=== PATIENT | male | born 1995 | race Caucasian/White ===

== ENCOUNTER 2024-05-08 14:55 | Emergency (ER) | payer OTHER, SELFPAY ==
[2024-05-08 14:56] VITALS: BP 146/112
[2024-05-08 15:01] VITALS: BMI 31.0
--- NOTE | 2024-05-08 15:18 | ED.GENMED ---
History of Present Illness
General
Chief Complaint: Blood Pressure Problem
Source: patient and police
Exam Limitations: none
Time Seen by Provider: 05/08/24 15:09
Nursing documentation reviewed up to this point in time: agreed with
History of Present Illness
History of Present Illness:
29-year-old male past medical history of ADHD anxiety and bipolar presenting to the emergency department today with concerns of elevated blood pressure on intake at [facility] when he was transferred from [facility]
correctional facility. They claimed that his blood pressure was elevated and sent him to the ER. He denies any current symptoms. He claims that he was stopped on his Subutex 5 days ago pending his transfer from a company to [facility]. They
were unable to verify it. He claims that this is likely why his blood pressure is elevated he denies any major concerns otherwise.
Review of Systems
Review of Systems
Allergies reviewed?: Yes
All Other Systems: ROS reviewed and negative except as documented in HPI and ROS
Phy Exam
Physical Exam
Physical Exam:
GENERAL: Alert , in no apparent distress
EYE: pupils equal and reactive
NECK: Supple, no significant adenopathy.
ENT: o/p clr, mmm.
CARDIAC: Regular rate and rhythm .
LUNGS: Clear breath sounds bilaterally, no acute respiratory distress, no wheezes/rales/rhonchi
ABDOMEN: Soft, without focal tenderness, no r/g, no cvat
NEUROLOGICAL: Alert and oriented, no focal neuro deficits
SKIN: Warm and dry, skin intact.
MUSCULOSKELETAL: No edema, well perfused.
PSYCH: Normal and appropriate interaction.
Course
Orders/Labs/Results
Orders:
Orders
05/08/24 15:14
EKG [Electrocardiogram (*1)] Urgent
Reason for Study: QTc Monitoring
EKG- Treatment ONCE
Buprenorphine [Subutex] 8 mg SL ONCE ONE
Vital Signs
Initial and Last Documented VS:
Initial Vital Signs
Temp Pulse Resp BP Pulse Ox
98.0 F 126 20 146/112 98
05/08/24 14:56 05/08/24 14:56 05/08/24 14:56 05/08/24 14:56 05/08/24 14:56
Last Documented Vital Signs
Temp Pulse Resp BP Pulse Ox
98.0 F 100 18 155/107 98
05/08/24 14:56 05/08/24 17:00 05/08/24 17:00 05/08/24 17:00 05/08/24 17:00
MDM/Problems Addressed
MDM/Problems Addressed:
29-year-old male presenting to the emergency department coming from [facility] he was refused entry due to elevated blood pressure at time of transfer from [facility]. He claims during the transfer
he was discontinued on his Subutex which he does plan to take in the future and has been taking in the past. He claims that he takes 16 mg daily and his last dose was 5 days ago. He claims this is likely why his blood pressure is elevated but he
denies any chest pain shortness of breath trouble with urination abdominal pain numbness weakness headache. There is no evidence of hypertensive emergency here. EKG normal given Subutex with improvement of heart rate blood pressure with slight
otherwise stable for outpatient management of this. Return precautions given.
*Critical Care Note
Total Time (30-74mins, 75-104mins- exclusive of procedures): Not Applicable
ED Attending Note
-
Portions of this chart may have been created with voice recognition software.� Occasional wrong word or��sound alike� substitutions may have occurred due to the inherent limitations of voice recognition software.
Discharge Plan
Departure
Patient Disposition: Fdc
Date of Disposition: 05/08/24
Time of Disposition: 17:31
Patient with high blood pressure during this ER visit?: Yes
Condition: Good
Covid-19: Not Applicable
Discharge Problem:
High blood pressure
Instructions: High Blood Pressure (DC)
Prescriptions:
New
buprenorphine HCl 8 mg tablet, sublingual
16 mg sublingual DAILY 3 Days Qty: 6 0RF
Referrals:
NONE,* [Family Provider] -
Activity Restrictions/Additional Instructions:
The patient is medically cleared for incarceration. Kartik presented here with concerns of elevated blood pressure on arrival to [facility] earlier today. Here the blood pressure has been in the 140s over 100. He has been
asymptomatic and has no evidence of hypertensive emergency at this time. His EKG was normal. Heart rate was initially elevated but now in the high 90s. He did discontinue Subutex over the past few days which is a very likely cause of patient's
elevated blood pressure. He was given an additional dose here. He should resume this medication and have his blood pressure monitored over the next few days as this will likely return to normal. If there is any issues or concerns please call
[phone]
Interventions
Interventions:
*Risk Screen - Suicide Last Done: 05/08/24 15:05
*General Assessment Last Done: 05/08/24 15:05
*Neglect/Abuse Screening Last Done: 05/08/24 15:06
*ED COVID-19 Vaccine History Last Done: 05/08/24 15:04
Discharge Date and Time
Print Language: URDU
[2024-05-08] MEDS: SUBUTEX 8 MG SL (16:01)
[2024-05-08 17:00] VITALS: BP 155/107
== END 2024-05-08 17:41 ==
LOC: EMR 14:55
PROVIDERS: EMERGENCY PHYSICIAN Emergency Medicine
DX: R03.0 Elevated blood-pressure reading, without diagnosis of hypertension (principal); F31.9 Bipolar disorder, unspecified
CPT/HCPCS: 99283; 93005

== ENCOUNTER 2024-09-10 14:56 | Inpatient (IN) | payer OTHER, SELFPAY ==
[2024-09-10] VITALS (44 sets, daily range): BP systolic 116–165; BP diastolic 64–131; BMI 27.3
[2024-09-10 10:47] LABS: Glucose - Point of Care 131 mg/dl (70-99)
--- NOTE | 2024-09-10 11:03 | ED.GENMED ---
History of Present Illness
General
Chief Complaint: Withdrawal Symptoms
Source: patient and ambulance crew
Exam Limitations: none
Time Seen by Provider: 09/10/24 10:40
Nursing documentation reviewed up to this point in time: agreed with
History of Present Illness
History of Present Illness:
Patient with history of fentanyl use, with last use 3 days ago, presents to ED from [facility] secondary to continual nausea and vomiting since being admitted to facility 2 days ago. Patient denies abdominal pain. Denies
fever or chills. Denies chest pain or shortness of breath. Denies headache. Patient reports diarrhea along with shaking and sweating sensation.
Review of Systems
Review of Systems
Allergies reviewed?: Yes
All Other Systems: ROS reviewed and negative except as documented in HPI and ROS
Constitutional: Reports no symptoms; Denies fever
Respiratory: Reports no symptoms
Cardiac: Reports no symptoms
ABD/GI: Reports nausea, vomiting and diarrhea; Denies abdominal pain
: Reports no symptoms
Musculoskeletal: Reports no symptoms
Skin: Reports no symptoms
Neurological: Reports no symptoms
Phy Exam
Physical Exam
Physical Exam:
Physical Exam
General: mild distress, acutely ill. afebrile. tachycardic
Head: nc/at. eomi
Neck: supple. no meningeal signs.
Heart: tachycardic, no murmur.
Lungs: no acute respiratory distress. clear bilaterally
Abdomen: normal bowel sounds. not tender.
Neuro: alert and oriented x 3. no focal neurological deficits
Skin: no rash
Psychiatric: well kept. interactive and cooperative
Extremities: no edema. no calf tenderness.
Course
Orders/Labs/Results
Orders:
Orders
09/10/24 Breakfast
NPO
Allow oral meds: Yes
Allow clear liquids: Sips of Clears
NPO with Ice Chips: Yes
09/10/24 10:52
Electrocardiogram (*1) Stat
Comment: ALREADY DONE IN ED
09/10/24 10:55
0.9% Sodium Chloride 1000 ml [Nss] 1,000 ml IV BOLUS
Lorazepam [Ativan] 2 mg IM NOW STA
Ondansetron Injectable [Zofran] 4 mg IV NOW STA
09/10/24 11:06
Alcohol Urgent
Complete Blood Count/With Diff Urgent
Comprehensive Metabolic Panel Urgent
Magnesium Urgent
09/10/24 11:08
Trimethobenzamide [Tigan] 200 mg .ROUTE .STK-MED ONE
Trimethobenzamide [Tigan] 200 mg IM NOW STA
09/10/24 11:14
Lorazepam [Ativan] 2 mg IV NOW STA
09/10/24 12:05
Electrocardiogram (*1) Stat
Comment: ALREADY DONE IN ED
09/10/24 12:12
Lorazepam [Ativan] 2 mg .ROUTE .STK-MED ONE
09/10/24 12:14
Lorazepam [Ativan] 2 mg IV NOW STA
09/10/24 13:05
Lorazepam [Ativan] 1 mg IV NOW STA
09/10/24 13:06
Prochlorperazine [Compazine] 10 mg IV NOW STA
09/10/24 14:00
Admit/Transfer Patient As Directed
Co-Sign Provider:
Level of Care: Inpatient admission
Assign to:: IMU- Intermediate Care
Physician / Group: Tanya
Diagnosis: Opioid Withdrawal
Reason for Hospitalization: Opioid Withdrawal
Expected length of stay greater than two midnights?: Yes
ELOS- Estimated Length of Stay in days: 3
I certify the patient meets the requirements for IP care: Yes
09/10/24 14:01
Code Status As Directed
Resuscitation Status: Full Code
PRN Pain Medication Management As Directed
May give lesser potent ordered pain med per pt: Yes
preference::
Protocol:: Medication orders for pain may be administered in a
manner that supports deferring to patient preference
when the pt is:
- Requesting an ordered lesser potent pain medication.
Least to most potent pain medications are defined
as: acetaminophen < NSAID < tramadol < opioids
(morphine, oxycodone, hydromorphone).
- Requesting a lesser dose of the same medication IF
ORDERED.
- Requesting a less intrusive route of administration
if both routes are prescribed by the provider (PO <
IV).
09/10/24 14:07
Potassium Chloride [KCl] 20 meq 0.9% Sodium Chloride 250 ml [Nss] 250 ml IV NOW
09/10/24 14:11
Add On- LAB Urgent
Tests Added?: magnesium
09/10/24 14:19
PRN Pain Medication Management As Directed
May give lesser potent ordered pain med per pt: Yes
preference::
Protocol:: Medication orders for pain may be administered in a
manner that supports deferring to patient preference
when the pt is:
- Requesting an ordered lesser potent pain medication.
Least to most potent pain medications are defined
as: acetaminophen < NSAID < tramadol < opioids
(morphine, oxycodone, hydromorphone).
- Requesting a lesser dose of the same medication IF
ORDERED.
- Requesting a less intrusive route of administration
if both routes are prescribed by the provider (PO <
IV).
09/10/24 14:21
Acetaminophen 1000MG/100Ml [Ofirmev] 1,000 mg in 100 ml IV ONCE
Acetaminophen IV Indication:: No NE & No Enteral Access
09/10/24 14:30
Buprenorphine [Subutex] 2 mg .ROUTE .STK-MED ONE
09/10/24 14:45
Buprenorphine [Subutex] 16 mg SL NOW ONE
09/10/24 15:20
Lorazepam [Ativan] 1 mg IV Q4HPRN PRN
Tizanidine [Zanaflex] 2 mg TUBE Q6HPRN PRN
Trimethobenzamide [Tigan] 200 mg IM Q6HPRN PRN
09/10/24 15:20
Electrocardiogram (*1) Routine
Reason for Study: QTc Monitoring
Comment: if not already done in ED
Activity As Directed
Activity Level: Out of Bed-Early Mobility
With Assistance
Capnography/ETCO2 As Directed
Clinical Opioid Withdrawal Scale (COWS) .PRN
I&O [Intake/ Output] As Directed
Frequency: q12h
Vital Signs As Directed
Frequency: Per unit guidelines
Weight As Directed
Frequency: Daily
DX Deep Vein Thrombosis Video Routine
09/10/24 15:30
Blood Culture Q30M
ARJUN Source: Blood/Venous
Specimen Description:
09/10/24 16:28
Acetaminophen [Tylenol Oral Solution] 650 mg TUBE Q4HPRN PRN
09/10/24 16:38
Fentanyl, Urine Urgent
Urine Drug Abuse Screen Urgent
Date Specimen was Collected: 09/10/24
Time Specimen was Collected: 16:05
Blood Culture Q30M
ARJUN Source: Blood/Venous
Specimen Description:
09/10/24 16:41
KCl 20 Meq/0.9%Sodchl 1000 ml [NSS with KCL 20 MEQ] 20 meq in 1,000 ml IV 125 mls/hr
09/10/24 16:42
Loperamide [Imodium Liquid] 2 mg TUBE Q4HPRN PRN
09/10/24 18:00
Clonidine [Catapres] 0.1 mg TUBE Q6
Enoxaparin Sodium [Lovenox] 40 mg SC QPM
09/11/24 06:00
ECG [Electrocardiogram (*1)] IN AM
Reason for Study: QTc Monitoring
Basic Metabolic Panel IN AM
Complete Blood Count/No Diff IN AM
Cpxnn-Btsi-Eyllgbe IN AM
09/13/24 11:00
DC Protocol for Telemetry ONCE
Abnormal Lab Results
09/10/24 09/10/24
10:46 11:06
WBC 21.7 H 10^3/uL
(4.8-10.8)
Abs Immat Gran (auto) 0.1 H 10^3/uL
(0-0.05)
Absolute Neuts (auto) 19.9 H 10^3/uL
(1.4-6.5)
Absolute Lymphs (auto) 0.8 L 10^3/uL
(1.2-3.4)
Absolute Monos (auto) 0.9 H 10^3/uL
(0.1-0.6)
Immature Gran % 0.6 H %
(0-0.5)
Neutrophils % 91.6 H %
(42.2-75.2)
Lymphocytes % 3.7 L %
(20.5-51.1)
Sodium 147 H mmol/L
(135-145)
Chloride 109 H mmol/L
(98-107)
Glucose 127 H mg/dl
(70-99)
Total Protein 9.1 H g/dl
(6.3-8.2)
POC Glucose 131 H mg/dl
(70-99)
09/10/24 11:06
09/10/24 11:06
Vital Signs
Initial and Last Documented VS:
Initial Vital Signs
Temp Pulse Resp BP Pulse Ox
98.6 F 98 18 136/89 98
09/10/24 10:35 09/10/24 10:35 09/10/24 10:35 09/10/24 10:35 09/10/24 10:35
Last Documented Vital Signs
Temp Pulse Resp BP Pulse Ox
101.3 F H 137 40 122/95 100
09/10/24 16:18 09/10/24 15:15 09/10/24 15:00 09/10/24 15:25 09/10/24 16:18
MDM/Problems Addressed
MDM/Problems Addressed:
History and exam concerning for significant likely opioid withdrawal symptoms. Despite treatment via multiple medications, patient remains symptomatic. As such, patient will be admitted for further evaluation and treatment.
*EKG
Interpreted by ED Provider?: Yes
EKG Intrepretation Date: 09/10/24
Heart Rate: 105
Rate: tachycardiac
Rhythm: sinus
[place]: normal axis
Interval: normal interval
*Critical Care Note
Total Time (30-74mins, 75-104mins- exclusive of procedures): Not Applicable
ED Attending Note
-
Portions of this chart may have been created with voice recognition software.� Occasional wrong word or��sound alike� substitutions may have occurred due to the inherent limitations of voice recognition software.
Discharge Plan
Departure
Patient Disposition: Admit
Date of Disposition: 09/10/24
Time of Disposition: 13:45
Admit to: Telemetry
Presentation/result/management discussed w/ accepting MD/DO: Hospitalist
Discharge Problem:
Opioid withdrawal
Interventions
Interventions:
*Risk Screen - Suicide Last Done: 09/10/24 10:35
*General Assessment Last Done: 09/10/24 12:40
*Neglect/Abuse Screening Last Done: 09/10/24 10:35
*ED COVID-19 Vaccine History Last Done: 09/10/24 10:35
*Nursing Disposition Last Done: 09/10/24 15:20
ED- Neurological Assessment Last Done: 09/10/24 11:36
ED-Psychological Assessment Last Done: 09/10/24 11:36
Discharge Date and Time
Discharge Date/Time: 09/10/24 15:19
[2024-09-10] MEDS: NSS 1000 IV (11:13)
[2024-09-10] MEDS: TIGAN 200 MG IM (11:13)
[2024-09-10] MEDS: ATIVAN 2 MG IV ×2 (11:15→12:15)
[2024-09-10 11:20] LABS: % Basophils 0.2 % (0-2); % Immature Granulocytes 0.6 % (0-0.5); % Lymphocytes 3.7 % (20.5-51.1); % Monocytes 3.9 % (1.7-9.3); % Neutrophils 91.6 % (42.2-75.2); Absolute Basophils 0.1 10^3/uL (0-0.2); Absolute Immature Granulocytes 0.1 10^3/uL (0-0.05); Absolute Lymphocytes 0.8 10^3/uL (1.2-3.4); Absolute Monocytes 0.9 10^3/uL (0.1-0.6); Absolute Neutrophils 19.9 10^3/uL (1.4-6.5); Hematocrit 43.5 % (39.0-52.0); Hemoglobin 15.2 g/dL (13.0-18.0); Mean Corp Hgb Conc. 34.9 g/dL (33.0-37.0); Mean Corpuscular Hgb 28.9 pg (27.0-31.0); Mean Corpuscular Volume 82.7 fL (80.0-94.0); Nucleated Red Blood Cells % 0 % (-); Platelet Count 325 10^3/uL (130-400); Red Blood Cell Count 5.26 10^6/uL (4.70-6.10); Red Cell Dist. Width 12.7 % (11.5-14.5); White Blood Cell Count 21.7 10^3/uL (4.8-10.8)
[2024-09-10 11:33] LABS: AST (SGOT) 37 U/L (17-59); Albumin 4.7 g/dl (3.5-5.0); Alkaline Phosphatase 85 U/L (38-126); Blood Urea Nitrogen 13 mg/dl (9-20); Calcium 10.1 mg/dl (8.4-10.2); Carbon Dioxide 23 mmol/L (22-30); Estimated Creatinine Clearance > 125 ml/min; Glucose 127 mg/dl (70-99); Magnesium 1.8 mg/dl (1.6-2.3); Potassium 3.5 mmol/L (3.5-5.1); Sodium 147 mmol/L (135-145); Total Bilirubin 0.9 mg/dl (0.2-1.3); Total Protein 9.1 g/dl (6.3-8.2); eGFR > 60.00
[2024-09-10 11:36] LABS: Alcohol None Detected
[2024-09-10 11:54] LABS: ALT (SGPT) 36 U/L (0-50); Chloride 109 mmol/L (98-107)
[2024-09-10] MEDS: COMPAZINE 10 MG IV (13:15)
[2024-09-10] MEDS: ATIVAN 1 MG IV (13:15)
--- NOTE | 2024-09-10 13:52 | HPS.HSE ---
Family Physician
-
Family Physician: Facility [facility]
Chief Complaint
-
Opioid Withdrawal
History of Present Illness
Patient is a 29 y/o male past medical history of substance abuse, and anxiety/depression/bipolar disorder who presents with opioid withdrawal. Patient has been incarcerated since yesterday, and reports last fentanyl usage was the day prior.
Patient reported prior benzo use as well. Despite Subutex given at the retirement patient continues with significant opioid withdrawal symptoms including restlessness, nausea/vomiting, and diarrhea.
Medical History
Past Medical History
Past Medical History: Reports Other
Additional Past Medical History:
Anxiety / Depression / Bipolar Disorder
Substance Abuse
Past Surgical History: Reports None
Social History
Drug: Narcotics
Family History
Family History: Not pertinent
Allergies / Home Medications
Allergies reflects when Allergies were last updated in [employer].
Home Medications with original date entered in [employer]
Allergy/Medication List:
Allergies
Allergy/AdvReac Type Severity Reaction Status Date / Time
No Known Allergies Allergy Verified 05/08/24 14:56
Home Medications
buprenorphine HCl 8 mg sublingual tablet 24 mg sublingual DAILY 09/10/24
clonazepam 1 mg tablet 2 mg PO DIRECTED 09/10/24
clonidine HCl 0.1 mg tablet 0.1 mg PO DIRECTED 09/10/24
loperamide 2 mg tablet 2 mg PO TIDPRN PRN diarrhea 09/10/24
ondansetron HCl 4 mg tablet 4 mg PO Q6HPRN PRN nausea 09/10/24
sulfamethoxazole 800 mg-trimethoprim 160 mg tablet (Bactrim DS) 1 tab PO BID 09/10/24
Review of Systems
-
Unable to obtain full review of systems at this time due to: Acuity
Physical Exam
Vital Signs
Vital Signs
Temp Pulse Resp BP Pulse Ox
98.6 F 123 42 138/77 98
09/10/24 10:35 09/10/24 13:15 09/10/24 13:15 09/10/24 13:00 09/10/24 10:35
Physical Exam
General: Well Developed and Other (Restless)
HEENT: NormoCephalic and Anicteric
Respiratory: Clear and Non Labored Respirations
Cardiac: S1/S2, Regular Rhythm and Tachycardia
GI: Soft and Non Tender
Musculoskeletal: No Clubbing, No Cyanosis and No Edema
Skin: Warm and Other (Slightly sweaty)
Neuro: Awake, Alert and No Motor Deficits
Psych: Other (Restless)
Laboratory Results
-
09/10/24 11:06
09/10/24 11:06
Laboratory Results
Total Bilirubin 0.9 mg/dl (0.2-1.3) 09/10/24 11:06
AST 37 U/L (17-59) 09/10/24 11:06
ALT 36 U/L (0-50) 09/10/24 11:06
Alkaline Phosphatase 85 U/L (38-126) 09/10/24 11:06
Data Reviewed
-
Lab Data: Labs Reviewed by me
Impression/Plan
-
Opioid and possible benzo Withdrawal
-Admit to IMU for close monitoring
-Give Subutex 16mg NOW
-Continue Subutex as per opioid withdrawal protocol
-Add Clonidine
-Continue Ativan PRN
-Continue Tigan PRN
Prolonged QT
-Avoid unnecessary QT prolonging medications
-Potassium borderline low, will replace - Check Magnesium
-Recheck ECG in AM
Leukocytosis, likely reactive
-Monitor for signs of infection
-If develop fevers check blood cultures
-Recheck CBC in AM
Hypernatremia, mild
-Appears appears quite volume depleted
-Continue IVFs
-Recheck labs in AM
DVT proph: Lovenox
Code Status: Full Code
[2024-09-10] MEDS: OFIRMEV 100 IV (14:22)
--- NOTE | 2024-09-10 14:29 | W.PN.UPDATE ---
Update Note
Progress Note Update
This is an addendum to the H&P written by Verenice Mendiola on 09/10/2024. Patient seen examined independently with PA.
29-year-old male past medical history of fentanyl use last used 3 days ago presenting from [facility] for nausea and vomiting. Questionable benzodiazepine use. No abdominal pain. No fevers or chills. No chest pain
shortness of breath. Has been having diarrhea sweating.
Tachycardic on labs. EKG shows sinus tachycardia, poor quality. QTc 595.
UDS, urine fentanyl, pending. Alcohol level negative.
Labs show sodium of 147. Leukocytosis 21.
Presentation consistent with acute opiate withdrawal. Also with QTc prolongation.
IV fluids, opiate withdrawal protocol. Give 16 mg buprenorphine now. Standing clonidine as needed Ativan. Tigan for nausea. Consider precedex drip if no improvement.
[2024-09-10] MEDS: SUBUTEX 16 MG SL (14:41)
--- NOTE | 2024-09-10 15:27 | EDRN ---
Pulse ox was >91% in the ed. no resp distress noted in ed. pt became tachypneic and hypoxic in elevator to imu. rapid shallow breathing noted. severe resp distress. rapid response called. pulse ox 64% at bedside of imu. nrb placed. pt transferred to
ICU.
[2024-09-10 15:33] LABS: Glucose - Point of Care 196 mg/dl (70-99)
--- NOTE | 2024-09-10 15:41 | W.SUR.POST ---
Surgical Immediate Post Op
Note
Endotracheal Intubation Procedure
Date of procedure: 09/10/2024
Pre Op Diagnosis: Acute respiratory distress
Post Op Diagnosis: Same as above
Procedure Performed: Endotracheal intubation
Primary proceduralist: Dr. Chaney
Secondary Surgeons: Anesthesia who was called overhead
Anesthesia: Propofol 150 mg IVP X1 + succinylcholine 140 mg IVP X1
Estimated Blood Loss: None
Fluids: N/A
Drains/Shunts: N/A
Specimens/Cultures: N/A
Doppler/Duplex/Angio (Y/N): N/A
Complications: No immediate complications
Operative Findings: Patient was emergently intubated due to acute respiratory distress. RSI given with propofol 150 mg + succinylcholine 140 mg. Patient bagged via BVM and then successfully intubated with video laryngoscope (GlideScope) using an
S3 blade with size 8 ETT being seen inserted into glottis with no resistance. Proper placement also confirmed via color capnometry, as well as auscultation over the chest which had bilateral breath sounds. CXR + ABG pending.
[2024-09-10] MEDS: DIPRIVAN 100 IV ×3 (15:44→22:05)
[2024-09-10] MEDS: SUBLIMAZE 100 MCG IV ×6 (15:46→21:14)
[2024-09-10] MEDS: SUBLIMAZE 100 IV ×2 (15:48→22:06)
--- NOTE | 2024-09-10 15:48 | CON.INTV ---
Documented by User: Moises Ortiz DO, Resident 09/10/24 16:00
Consultation
Consultation Request
Date/Time Consultation Requested: 3:30
Date/Time Consultation Performed: 3:48
Medical History
-
Chief Complaint: Opioid withdrawal
History of Present Illness:
29-year-old male with past medical history of substance use disorder, anxiety, depression, bipolar disorder who presented to [facility] with opioid withdrawal. At time of arrival, patient reported last fentanyl use as 09/09. He has a
history of benzo use as well. Patient is managed on Subutex in penitentiary however continues to have significant opioid withdrawal symptoms. Patient was transferred to the ICU in acute respiratory distress and was intubated. On 50 mg of propofol 140
mg of succinylcholine were utilized. Chest x-ray and ABG were ordered, pending.
Vitals in the ICU are 122/95, 137 pulse, 40 respirations, 101.1 degree temperature, 93% oxygen saturation on room air.
Past medical history�substance use disorder, anxiety, depression, bipolar disorder
Past surgical history�none
Past Medical History
Past Medical History: Other (See above)
Social History
Drug: Narcotics
Living: Intermediate
Family History
Family History: Unable to Obtain
Allergies / Home Medications
Allergies
Allergy/AdvReac Type Severity Reaction Status Date / Time
No Known Allergies Allergy Verified 05/08/24 14:56
Home Medications
�Medication �Instructions �Recorded �Confirmed �Last Taken �Type
buprenorphine HCl 8 mg sublingual 24 mg sublingual DAILY 09/10/24 09/10/24 09/09/24 History
tablet
clonazepam 1 mg tablet 2 mg PO DIRECTED 09/10/24 09/10/24 09/10/24 History
clonidine HCl 0.1 mg tablet 0.1 mg PO DIRECTED 09/10/24 09/10/24 09/10/24 History
loperamide 2 mg tablet 2 mg PO TIDPRN PRN diarrhea 09/10/24 09/10/24 Unknown History
ondansetron HCl 4 mg tablet 4 mg PO Q6HPRN PRN nausea 09/10/24 09/10/24 Unknown History
sulfamethoxazole 800 1 tab PO BID 09/10/24 09/10/24 09/10/24 History
mg-trimethoprim 160 mg tablet
(Bactrim DS)
Review of Systems
-
Unable to Obtain full review of systems at this time due to: Patient Intubation
History Source: Patient
Vitals / Labs / Diagnostic Testing
Vital Signs
Temp Pulse Resp BP Pulse Ox
101.1 F H 137 40 122/95 93
09/10/24 14:23 09/10/24 15:15 09/10/24 15:00 09/10/24 15:25 09/10/24 15:25
Lab Data
09/10/24 11:06
09/10/24 11:06
Diagnostic Testing:
Physical Exam
-
HEENT: Normocephalic and Other (Diaphoretic)
Cardiovascular: S1/S2 and Irregular Rhythm
Respiratory: Clear
GI: Soft and Non Distended
Neurology: Tremors
Skin: Warm and Other (Diaphoretic)
General: Other (Intubated)
Assessment
-
29-year-old male with past medical history of substance use disorder, anxiety, depression and bipolar disorder being managed in the ICU for opioid withdrawal.
Past 24 hours:
� Admitted to ICU
� Intubated on 09/10
� White blood cell count 21.7, hemoglobin 15.2, platelets 325.
� 147 sodium, 3.5 potassium, 23 bicarb, 13 BUN, 0.7 creatinine. Blood glucose 127
� Toxicology report pending, alcohol not detected
� EKG shows sinus tachycardia
# Opioid and possible benzo withdrawal
# Substance use disorder
# Tachycardia
# Leukocytosis
# Elevated blood sugar
# Hyponatremia
# Prolonged QTc on EKG
-Patient intubated at this time: Check ABG at 430
-Continue Subutex as per opiate withdrawal protocol
-Continue clonidine
-Continue as needed Ativan and Tigan
-Toradol IV as needed for pain
-Place barnett
- CXR pending
- wrist restraints ordered
-UTox pending
-Avoid medications that can further prolong QT; repeat EKG in the morning
-Elevated white blood count is likely reactive; no if patient well fevers recommend getting blood culture
-Continue with IV fluids for now; patient likely volume depleted due to vomiting. Recheck labs in the morning
-Borderline low potassium; replete
DVT prophylaxis: Lovenox
GI prophylaxis: Protonix IV 40 mg twice daily

Documented by User: Jorge A Rapp MD, Resident 09/10/24 15:58
Assessment
-
29-year-old male with past medical history of substance use disorder, anxiety, depression and bipolar disorder being managed in the ICU for opioid withdrawal.
Past 24 hours:
� Admitted to ICU
� Intubated on 09/10
� White blood cell count 21.7, hemoglobin 15.2, platelets 325.
� 147 sodium, 3.5 potassium, 23 bicarb, 13 BUN, 0.7 creatinine. Blood glucose 127
� Toxicology report pending, alcohol not detected
� EKG shows sinus tachycardia
# Opioid and possible benzo withdrawal
# Substance use disorder
# Tachycardia
# Leukocytosis
# Elevated blood sugar
# Hyponatremia
# Prolonged QTc on EKG
-Patient intubated at this time: Check ABG at 430
-Continue Subutex as per opiate withdrawal protocol
-Continue clonidine
-Continue as needed Ativan and Tigan
-Toradol IV as needed for pain
-Avoid medications that can further prolong QT; repeat EKG in the morning
-Elevated white blood count is likely reactive; no if patient well fevers recommend getting blood culture
-Continue with IV fluids for now; patient likely volume depleted due to vomiting. Recheck labs in the morning
-Borderline low potassium; replete
DVT prophylaxis: Lovenox
GI prophylaxis: Protonix IV 40 mg twice daily
[2024-09-10] MEDS: MAGNESIUM SULFATE 50 IV (16:09)
[2024-09-10] MEDS: SUBLIMAZE 50 MCG IV (16:24)
[2024-09-10 16:55] LABS: Urine Albumin 2+ (Neg - Trace); Urine Bilirubin Negative (Negative); Urine Character Clear (Clear); Urine Color Yellow; Urine Glucose Negative (Negative); Urine Ketone 3+ (Negative); Urine Leukocyte Negative (Negative); Urine Nitrite Negative (Negative); Urine Occult Blood Negative (Negative); Urine Specific Gravity 1.025 (<1.030); Urine Urobilinogen Negative (Neg - 1+)
[2024-09-10] MEDS: VERSED 4 MG IV (16:56)
[2024-09-10 17:02] LABS: B.E. -1.2 mmol/L; HCO3 22.7 mmol/L (21-28); O2 Saturation % 99.7 % (94-98); PCO2 35 mmHg (35-48); PO2 220 mmHg (83-108); pH 7.42 (7.35-7.45)
[2024-09-10 17:05] LABS: Urine Squamous Cell 0-2 /LPF (Few)
[2024-09-10 17:06] LABS: Urine Mucus Moderate
[2024-09-10 17:07] LABS: Urine Bacteria Few (Negative); Urine Red Blood Cell 0-2 /HPF (0-2); Urine White Cell 0-2 /HPF (0-5)
--- NOTE | 2024-09-10 17:10 | PTCARENOTE ---
VAT at bedside to place PICC.
[2024-09-10 17:11] LABS: Benzodiazepines Positive (Negative); Cocaine Positive (Negative); Methamphetamines Positive (Negative); Opiates Positive (Negative)
[2024-09-10 17:12] LABS: Amphetamines Negative (Negative); Barbiturates Negative (Negative); Buprenorphine Positive (Negative); Marijuana Negative (Negative); Methadone Negative (Negative); Phencyclidine Negative (Negative); Tricyclic Antidepressants Negative (Negative)
[2024-09-10] MEDS: ZYPREXA 10 MG IM (17:16)
[2024-09-10] MEDS: STERILE WATER FOR INJECTION 2.1 ML IM (17:16)
[2024-09-10 17:19] LABS: Fentanyl, Urine Positive (Negative)
[2024-09-10 17:24] LABS: COVID-19 Antigen Negative (Negative)
[2024-09-10 17:25] LABS: Triglycerides 102 mg/dl (10-149)
[2024-09-10 17:49] LABS: APTT 28.2 Sec (23.4-35.0); INR 1.31; PT 16.5 Sec (11.4-14.6)
[2024-09-10] MEDS: KCL 260 MEQ IV (17:49)
--- NOTE | 2024-09-10 18:08 | PTCARENOTE ---
Around 1500, rapid response called for respiratory distress. Patient unresponsive. Tachypneic. Labored breathing. NRB placed for pulse ox in the 60's. Decision made to intubate patient. #8 ett placed, 23cm @ the lip. A/C 22/450/5/60%. Lung sounds
diminished throughout. ST on tele, rate in the 140-160's. Patient restless/agitated. Propofol and Fentanyl drips initiated. Bladder scan 467 cc's. 16Fr indwelling barnett catheter placed. Incontinent of brown, soft BM. Patient vomited a large amount
of coffee ground emesis. 16Fr NGT placed to suction. Patient washed and repositioned. VAT at bedside to place PICC. Patient too agitated and uncooperative to place PICC. Propofol drip max'd @50. Fentanyl bolus administered and drip increased.
Patient continuing to thrash in bed. Kicking legs. Attempting to pull out ett. Relay Mechanic notified. 4mg Versed, 100 mcg Fent bolus administered with little improvement. 10mg IM Zyprexa administered. Left double lumen PICC placed. CXR ordered. ABG,
labs, blood cx's, flu/covid swabs sent. Vitals stable. Core temp 102.5. 1G Ofirmev administered at 1422. Ice packs applied. See worklist and MAR for full assessment and care.
[2024-09-10] MEDS: CATAPRES TUBE ×2 (19:37→23:54)
[2024-09-10] MEDS: NSS with KCL 20 MEQ 1000 IV (19:39)
[2024-09-10] MEDS: NSS (PRESERVATIVE FREE) 10 ML IV (19:39)
[2024-09-10] MEDS: PROTONIX IV 40 MG IV (19:39)
[2024-09-10] MEDS: VERSED 1 MG IV ×2 (20:07→22:21)
[2024-09-10] MEDS: PRECEDEX 100 IV (21:14)
[2024-09-10 21:23] LABS: Glucose - Point of Care 121 mg/dl (70-99)
[2024-09-10] MEDS: STERILE WATER FOR INJECTION 10 ML IV (22:08)
[2024-09-10] MEDS: MAXIPIME 1000 MG IV (22:08)
[2024-09-10] MEDS: VANCOCIN 540 MG IV (22:08)
[2024-09-10] MEDS: TYLENOL ORAL SOLUTION 650 MG TUBE (22:21)
--- NOTE | 2024-09-10 23:06 | PTCARENOTE ---
Received patient intubated and restrained. PERRLA 2 mms, sluggish. Restless, agitated, multiple fentanyl and midazolam boluses given with little relief. THREE DIMENSIONAL MAP MODELER and pharmacy notified, precedex drip initiated. Sinus tach, 110s-140s, hypertensive
150s-160s/80s-100s. THREE DIMENSIONAL MAP MODELER aware. Core temp 102.7, cooling blanket initiated, attempted to give tylenol through NG, patient vomited, THREE DIMENSIONAL MAP MODELER notified. Cleaned up, CHG bath done, gown/sheets changed. Palpable radial and pedal pulses b/l. 8.0 ETT, 26 at the
lip. AC 22/450/5/60%, saturating 100%. Lung sounds diminished, coarse in the bases. Right nare NGT to LIWS with dark brown output. 16 yakut temp sensing barnett in place, minimal urine output, THREE DIMENSIONAL MAP MODELER aware. Scabs scattered throughout. Left DL PICC
patent, WNL. PIVs patent, WNL. Fentanyl, propofol, precedex, and IVF gtt ongoing per protocol. Hourly rounding and patient safety checks ongoing. Repositioned, mouth care done.
[2024-09-11] VITALS (57 sets, daily range): BP systolic 109–211; BP diastolic 67–126; BMI 27.8
--- NOTE | 2024-09-11 00:59 | PTCARENOTE ---
Patient more calm, occasionally still kicking legs. BP 140s/100s, ST 110s-120s, ANIMAL CYTOLOGIST aware. Otherwise patient assessment unchanged from previous, hourly rounding and patient safety checks ongoing.
[2024-09-11] MEDS: DIPRIVAN 100 IV ×5 (01:34→18:39)
[2024-09-11] MEDS: NSS with KCL 20 MEQ 1000 IV (01:34)
--- NOTE | 2024-09-11 02:29 | PTCARENOTE ---
Patient having minimal to no urine output. Bladder scanned for 154 mls, CONTINUITY READER notified. Barnett removed, patient incontinent and saturated the bed. CHG bath done, sheets changed, gown changed, new 16 sinhala temp sensing barnett placed with urine output.
[2024-09-11] MEDS: SUBLIMAZE 100 IV ×4 (03:07→21:03)
[2024-09-11] MEDS: MAXIPIME 1000 MG IV ×4 (04:31→21:24)
[2024-09-11] MEDS: STERILE WATER FOR INJECTION 10 ML IV ×4 (04:31→21:24)
[2024-09-11] MEDS: CATAPRES TUBE (05:04)
[2024-09-11 05:07] LABS: Hematocrit 33.8 % (39.0-52.0); Hemoglobin 11.8 g/dL (13.0-18.0); Mean Corp Hgb Conc. 34.9 g/dL (33.0-37.0); Mean Corpuscular Hgb 29.2 pg (27.0-31.0); Mean Corpuscular Volume 83.7 fL (80.0-94.0); Mean Platelet Volume 10.4 fL (7.4-10.4); Platelet Count 229 10^3/uL (130-400); Red Blood Cell Count 4.04 10^6/uL (4.70-6.10); Red Cell Dist. Width 13.2 % (11.5-14.5); White Blood Cell Count 21.2 10^3/uL (4.8-10.8)
[2024-09-11] MEDS: PRECEDEX 100 IV ×3 (05:24→18:39)
[2024-09-11] MEDS: APRESOLINE 10 MG IV (05:37)
--- NOTE | 2024-09-11 05:43 | PTCARENOTE ---
Patient assessment unchanged from previous, labs sent, repositioned.
[2024-09-11] MEDS: ZOFRAN 4 MG IV ×4 (06:12→23:12)
[2024-09-11] MEDS: CATAPRES 0.1 MG TUBE ×2 (06:13→12:38)
[2024-09-11] MEDS: CARDENE 200 IV ×2 (06:13→14:34)
[2024-09-11 06:18] LABS: ALT (SGPT) 19 U/L (0-50); AST (SGOT) 32 U/L (17-59); Albumin 3.3 g/dl (3.5-5.0); Alkaline Phosphatase 47 U/L (38-126); Blood Urea Nitrogen 11 mg/dl (9-20); Calcium 7.4 mg/dl (8.4-10.2); Carbon Dioxide 19 mmol/L (22-30); Chloride 121 mmol/L (98-107); Direct Bilirubin 0.3 mg/dl (0.0-0.4); Estimated Creatinine Clearance > 125 ml/min; Glucose 91 mg/dl (70-99); Potassium 5.6 mmol/L (3.5-5.1); Sodium 149 mmol/L (135-145); Total Bilirubin 0.6 mg/dl (0.2-1.3); Total Protein 6.4 g/dl (6.3-8.2); eGFR > 60.00
[2024-09-11] MEDS: NSS 1000 IV (06:52)
[2024-09-11] MEDS: CALCIUM GLUCONATE 1000 MG IV (06:59)
[2024-09-11] MEDS: LOKELMA 5 GRAM TUBE (06:59)
--- NOTE | 2024-09-11 08:13 | W.PN.INTV ---
Today's Communication / Plan
Recommendations
Klonopin 0.2 patch
Zoan [id number]
Start D5W for fluid
Assessment
-
29-year-old male with past medical history of substance use disorder, anxiety, depression and bipolar disorder being managed in the ICU for opioid withdrawal.
Past 24 hours:
� Admitted to ICU
� Intubated on 09/10. Continues to have dark brown vomitting.
� White blood cell count 21.2, hemoglobin 11.8, platelets 229.
� 149 sodium, 5.6 potassium, 19 bicarb, 11 BUN, 0.5 creatinine. AG of 15. Blood glucose 121
� Toxicology positive for cocaine, benzodiazepines, methamphetamines, fentanyl, buprenorphine and opioids. Alcohol not detected
� EKG shows sinus tachycardia
- Current drips: Fentanyl 20 mL/h, 0.6 Precedex, IV fluids 125 mL/h, 5 Cardene, 0.9 propofol
- start patient on D5W 75 ml/hr
# Opioid and possible benzo withdrawal
# Substance use disorder
# Tachycardia
# Leukocytosis
# Elevated blood sugar
# Emesis- dark brown
# Hyponatremia/ Hypernatremia
# Hyperkalemia
# Prolonged QTc on EKG
-Patient intubated at this time, continue vent settings
-Continue Subutex as per opiate withdrawal protocol
-Continue as needed Ativan and Tigan/ Reglan
- Continue abx (cefepime + vanc)
-Toradol IV as needed for pain
- Place barnett
- CXR pending
- continue restraints for agitation
-UTox positive for cocaine, benzodiazepines, methamphetamines, fentanyl, buprenorphine and opioids. Alcohol not detected
-Avoid medications that can further prolong QT
-Elevated white blood count is likely reactive; no if patient well fevers recommend getting blood culture
-Continue with IV fluids for now; patient likely volume depleted due to vomiting. Recheck labs at noon
-Replete electrolytes as needed.
- GI consult pending
� Start patient on clonidine 0.2 patch and Zofran [id number].
� Sputum culture pending
DVT prophylaxis: scds
GI prophylaxis: Protonix IV 40 mg twice daily
Subjective Dataa
Subjective Data
Date of Service:
Date of Service: September 11, 2024
patient currently intubated and sedated. Continues to have vomiting despite anti nausea medications.
Chief Complaint: Health Club Manager Follow Up
Review of Systems
General: Unobtainable - Sedation
Objective Data
Data Reviewed
Vital Signs / I&O / Oxygen:
Vital Signs
Temp Pulse Resp BP Pulse Ox
100.4 F H 126 22 145/86 99
09/11/24 07:46 09/11/24 07:15 09/11/24 07:15 09/11/24 07:15 09/11/24 07:15
Intake and Output
09/10/24 09/11/24 09/12/24
06:59 06:59 06:59
Intake Total 3209.7 / 3416.7 207.0 / 207.0
Output Total 795 / 812
Balance 2414.7 / 2604.7 190.0 / 190.0
SaO2 [A/C] 100
SaO2 99
Physical Exam
General: Comfortable and Other (intubated)
HEENT: Normocephalic and Anicteric
Cardiovascular: S1-S2 and Regular Rhythm
Respiratory: Clear
GI: Soft and Non Distended
Skin: Warm and Other (clammy)
Labs/Micro/Reports
Lab Data
09/11/24 04:37
09/11/24 04:37
Laboratory Results
09/10/24 09/10/24
16:48 17:31
PT 16.5 H
INR 1.31
APTT 28.2
pH 7.42
pCO2 35
pO2 220 H
HCO3 22.7
O2 Delivery Level
Microbiology
09/10/24 16:40 Nasal Swab Influenza Types A & B (ROGER) - Final
Negative for Influenza A & B, NAAT
Negative results must be combined with clinical observations
and patient history.
Nucleic Acid Amplification test (NAAT)performed on the
[employer] platform.
[2024-09-11] MEDS: PROTONIX IV 40 MG IV ×2 (08:32→19:40)
[2024-09-11] MEDS: TIGAN 200 MG IM (08:32)
[2024-09-11] MEDS: NSS (PRESERVATIVE FREE) 10 ML IV ×2 (08:32→19:40)
--- NOTE | 2024-09-11 08:40 | W.PN.HOSP.TC ---
Addendum entered and electronically signed by Sarmad Mcdaniels MD 09/11/24 16:27:
Acute hypoxemic respiratory failure now requiring intubation
Continue sedation with fentanyl propofol and Precedex
-Propofol monitor for blood pressure as this can cause hypotension and on Cardene drip therefore goal MAP greater than 65
-Precedex can cause drug-induced fever and bradycardia will need to continue to monitor vitals closely
RASS -5
Daily SAT SBT RSBI goal <105 when ready for extubation
Tidal volume 6 to 8 kg per ideal body weight
Goal spo2 >90%, titrate PEEP/FiO2 as such
Daily CXR
GI prophylaxis
Sepsis high white count tachycardic
Unclear source
Blood cultures were obtained
Polysubstance use however no track millan noted
For completeness we will check 2D echo
Opioid withdrawal
UDS positive for polysubstance use
Continue fentanyl
Continue clonidine
Once extubated and off Precedex fentanyl follow COWS protocol/microdosing
Uncontrolled hypertension
Continue Cardene drip
Coffee-ground emesis/normocytic anemia
3 g drop from admission. All 3 cell lineages decreased therefore suspecting hemoconcentration per GI
For now continue to monitor hemoglobin
Monitor gastric output via NG
PPI twice daily IV
Hyperkalemia unclear if this was a lab error however there is no evidence of hemolysis that will repeat was 3.7 and previous was 3.5
S/p Lokelma at 6:45 in the AM on 09/11/2024
Hypokalemia
Replete
Left upper extremity swelling
DVT study obtained/pending
Hypernatremia/hyperchloremia
Likely secondary to dehydration that was exacerbated by IV fluid administration with crystalloids
Change fluid administration to D5 water at a low rate or half NS
Metabolic acidosis likely related to hyperchloremia
Now resolved
Original Note:
Today's Communication/Plan
-
Continue antibiotics
Wean sedation and nicardipine drip as able
Fluids
COWS protocol
GI appreciated
PPI twice daily
Assessment / Plan
Assessment / Plan
21-year-old male with past medical history of substance use disorder, anxiety, depression, bipolar disorder presented to ED with opioid withdrawal symptoms. He is despite fentanyl and benzos. He has been given Klonopin, Zofran antibiotics and
presented. He was initially admitted to IMU for management, however transferred to ICU for acute respiratory distress requiring intubation on 09/10/2024.
#Acute respiratory distress
-Intubated on 09/10
-Sedation with fentanyl, propofol and Precedex which will also aid with withdrawal symptoms
-SBT per life insurance actuary
-Daily chest x-rays and ABG
# Opioid withdrawal
-UDS revealed opioids, buprenorphine, fentanyl, methamphetamines, benzodiazepines, cocaine
-No track millan noted on PE
-Currently sedated with fentanyl and propofol which will aid with withdrawal symptoms
-Received 16 mg Subutex, continue per COWS protocol
-Scheduled Zofran for intense nausea and vomiting
-Clonidine patch
-On nicardipine drip for associated hypertension
-Fluids D5
-tc 2D echo with hx substance use disorder to eval for endocarditits
-As needed fentanyl, midazolam, tizanidine
#Ground coffee emesis
# Acute blood loss anemia
-Ground coffee emesis noted
-Hemoglobin dropped from 15.2 to 11.8
-PPI BID
-GI appreciated
-Repeat H&H in pm
-Transfuse for hemoglobin less than 7
#Leukocytosis
#Febrile T max 101.6 last night
-WBC 21.2
-Unclear if reactionary or underlying pathogen
-Repeat chest x-ray as patient had multiple aspiration events while vomiting
-Vancomycin day 2, cefepime day 2
-Narrow antibiotics pending blood cultures
-Sputum cultures pending
-Cooling blanket and Tylenol for fevers
-Continue to monitor WBC and fever
#Hyperkalemia
-Originally on NSS with KCl 20 mEq for maintenance fluids
-Provided calcium gluconate and Lokelma
-Transition to normal saline
-Repeat K revealed within normal limits
-Monitor
#Hypernatremia
-Likely volume depleted
-Cont fluids
#Prolonged QTc
-QTc on admission 560, today 463
-Avoid QTc prolonging medications
-Monitor
DVT Lovenox
Full code
Anticipated Discharge: > 48 hours
Subjective/Interval History
-
Date of Service: September 11, 2024
Objective Data
-
Labs:
Laboratory Results
09/11/24
04:37
WBC 21.2 H
Hgb 11.8 L D
Hct 33.8 L
Plt Count 229 D
Sodium 149 H
Potassium 5.6 H D
Chloride 121 H
Carbon Dioxide 19 L
BUN 11
Creatinine 0.5 L
Glucose 91
Calcium 7.4 L D
Total Bilirubin 0.6
AST 32
ALT 19
Alkaline Phosphatase 47
Vital Signs:
Vital Signs
Temp Pulse Resp BP Pulse Ox
100.4 F H 126 22 145/86 99
09/11/24 07:46 09/11/24 07:15 09/11/24 07:15 09/11/24 07:15 09/11/24 07:15
I&O
09/10/24 09/11/24 09/12/24
06:59 06:59 06:59
Intake Total 3209.7 / 3416.7 207.0 / 207.0
Output Total 795 / 812
Balance 2414.7 / 2604.7 190.0 / 190.0
Review of Systems
-
Unable to obtain full review of systems at this time due to: Patient Intubation
Physical Exam
-
General: Intubated
Respiratory: Clear to Auscultation
Cardiac: S1/S2 and Tachycardic
GI: Soft, Nondistended and Normal Bowel Sounds
Musculoskeletal: No Edema and Other (No noted track millan )
Skin: Warm and Dry
--- NOTE | 2024-09-11 08:41 | VATNOTE ---
09/11 left upper arm where picc is appears swollen compared to the right upper arm. RN aware. Requested MD for U/S of left upper arm.
--- NOTE | 2024-09-11 09:00 | PTCARENOTE ---
Rec'd care of patient at 0700. Patient intubated/sedated. Pupils equal and reactive; +2mm, sluggish. MAEx4. ST on tele monitor. Rate in the 120-130's. Trace anasarca. Palpable pulses. #8 ett positioned 25cm @ the lip. A/C 450/22/5/40%. Pulse ox 98%.
Lung sounds diminished throughout. +BS. Dark brown emesis. Tigan administered. NGT to LIS. Incontinent of soft, brown bm. Moreno in place for critical I/O. Scattered scabs throughout body. Diaphoretic. Fent/Prop/Dex/Cardene/IVFs infusing through left
SHIN. Core temp 100.4. Cooling blanket off; monitoring temperature only. Guards at bedside. Safe environment maintained.
[2024-09-11] MEDS: MIRALAX TUBE (09:09)
--- NOTE | 2024-09-11 09:21 | PHA.VAN.IN ---
Assessment
- Assessment
Renal Function: Appears similar to baseline
Concomitant Antimicrobials: cefepime
AUC Dosing Plan
- Dosing Variables
Dosing Weight (kg): 83
Dosing CrCl (ml/min): 125
Vd coefficient (L/kg): 0.7
- Empiric Dosing
Initial / Loading Dose: 2000mg - 09/10 22:08 - give 1500mg x1 at 1200
Maintenance Regimen: Vanc 1000mg Q8H starting at 2200
Estimated AUC (mcg*h/mL): 503
Estimated Peak (mcg*h/mL): 29.7
Estimated Trough (mcg/ml): 13.9
Estimated Half Life (H): 6.4
- Monitoring
No levels ordered at this time: consider levels in next few days
Pharmacokinetics Vancomycin I
- -
Patient Age: 29
Patient Sex: Male
Vancomycin Day #: 1
Indication: Bacteremia
Requesting Provider: Ricky Pina
Pertinent Antimicrobial Allergies:
NKDA
Height / Weight:
Height 5 ft 8 in
Actual Weight 82.8 kg
Pertinent Past Medical History: OLYA
- Vital Signs / Lab Results
Temp Pulse Resp BP Pulse Ox
100.4 F H 128 22 139/77 98
09/11/24 07:46 09/11/24 09:00 09/11/24 09:00 09/11/24 09:00 09/11/24 09:00
Lab Results - Hematology
09/10/24 09/11/24
11:06 04:37
WBC 21.7 H 21.2 H
Lab Results - Chemistry
09/10/24 09/11/24
11:06 04:37
BUN 13 11
Creatinine 0.7 0.5 L
Estimated Creat Clear > 125 > 125
Albumin 4.7 3.3 L
Lab Results - Urine
09/10/24
16:38
Urine Nitrite (Reflex) Negative
Leukocyte Esterase Rfl Negative
Urine WBC (Reflex) 0-2
Ur Squamous Epith Cells 0-2
Urine Bacteria (Reflex) Few A
Microbiology Results
09/10/24 16:40 Influenza Types A & B (ROGER) - Final
Nasal Swab Negative for Influenza A & B, NAAT
Negative results must be combined with clinical observations
and patient history.
Nucleic Acid Amplification test (NAAT)performed on the
[employer] platform.
[2024-09-11 10:08] LABS: Blood Urea Nitrogen 11 mg/dl (9-20); Calcium 8.8 mg/dl (8.4-10.2); Carbon Dioxide 21 mmol/L (22-30); Chloride 118 mmol/L (98-107); Estimated Creatinine Clearance > 125 ml/min; Glucose 113 mg/dl (70-99); Potassium 3.7 mmol/L (3.5-5.1); Sodium 150 mmol/L (135-145); eGFR > 60.00
[2024-09-11] MEDS: CATAPRES-TTS-2 0.2 MG TRANSDERM (10:38)
[2024-09-11] MEDS: D5W 1000 IV ×2 (10:42→23:12)
--- NOTE | 2024-09-11 10:51 | CON.GI ---
Addendum entered and electronically signed by Ro Braun MD 09/11/24 15:27:
I saw and evaluated the patient. I reviewed the resident�s note and agree with findings and plan as documented in the resident�s note.
This is a 29-year-old male past medical history of substance abuse presenting with withdrawal found to have coffee-ground emesis. Hemoglobin had a slight drop but stable on repeat. May have initially been hemoconcentrated. Brown stool on exam.
History limited as patient is intubated. Differential diagnosis includes Sixto-Tabor tear versus gastritis versus trauma versus stasis in the stomach, less likely peptic ulcer disease. No history of alcohol use, patient has normal platelets and
normal INR.
At this time, recommend PPI twice daily, monitor hemoglobin. No need for upper endoscopy at this time.
At this time, GI will sign off. Please call if there is ongoing overt bleeding and or drop in hemoglobin.
Original Note:
Consultation
-
Date/Time Consultation Requested: 09/11/24
Date/Time Consultation Performed: 09/11/24
Requesting Provider:
Performing Provider: ,
Reason for Consultation: Coffee ground emesis
Medical History
Chief Complaint / HPI
Chief Complaint: Substance abuse withdrawal, coffee ground emesis
History of Present Illness:
This is a 29 yo M patient with PMH of substance abuse and anxiety/depression/bipolar who presented to the ED for opioid withdrawal concerns from [facility]. History is limited as patient is intubated. History obtained from
chart, accompanying police officers and nurse. The patient was known drug use (fentanyl) was on Saturday 09/09 and has a hx of using fentanyl and benzos. He was incarcerated on Tuesday and started to experience withdrawal symptoms of nausea and
vomiting on Tuesday. He was initially being treated in the IMU but had been transferred to ICU for respiratory distress and subsequently intubated. It was noted that he had remnants of vomit on his clothing that seemed 'coffee ground' in color when
he was in the ER and had an episode of coffee-ground emesis during intubation. He has had soft brown stool movements.
Past Medical History
Past Medical History: Other (substance abuse )
Past Surgical History: None
Social History
Drug: Narcotics
Living: Halfway
Family History
Family History: Unable to Obtain (intubated)
Allergies / Home Medications
Allergy/AdvReac Type Severity Reaction Status Date / Time
No Known Allergies Allergy Verified 05/08/24 14:56
�Medication �Instructions �Recorded
buprenorphine HCl 8 mg sublingual 24 mg sublingual DAILY 09/10/24
tablet
clonazepam 1 mg tablet 2 mg PO DIRECTED 09/10/24
clonidine HCl 0.1 mg tablet 0.1 mg PO DIRECTED 09/10/24
loperamide 2 mg tablet 2 mg PO TIDPRN PRN diarrhea 09/10/24
ondansetron HCl 4 mg tablet 4 mg PO Q6HPRN PRN nausea 09/10/24
sulfamethoxazole 800 1 tab PO BID 09/10/24
mg-trimethoprim 160 mg tablet
(Bactrim DS)
Review of Systems
-
Unable to obtain full review of systems at this time due to: Patient Intubation
Vital Signs
Temp Pulse Resp BP Pulse Ox
100.4 F H 131 22 138/83 98
09/11/24 07:46 09/11/24 10:38 09/11/24 10:00 09/11/24 10:38 09/11/24 10:00
Physical Exam
Exam
General: Intubated
HEENT: Normocephalic
Respiratory: Clear
Cardiac: S1/S2 and Regular Rhythm
GI: Soft and Non Distended
Skin: Warm and Dry
Neuro: Sedated
Results
WBC 21.2 10^3/uL (4.8-10.8) H 09/11/24 04:37
Hgb 11.8 g/dL (13.0-18.0) L D 09/11/24 04:37
Hct 33.8 % (39.0-52.0) L 09/11/24 04:37
MCV 83.7 fL (80.0-94.0) 09/11/24 04:37
Plt Count 229 10^3/uL (130-400) D 09/11/24 04:37
Absolute Neuts (auto) 19.9 10^3/uL (1.4-6.5) H 09/10/24 11:06
PT 16.5 Sec (11.4-14.6) H 09/10/24 17:31
INR 1.31 09/10/24 17:31
APTT 28.2 Sec (23.4-35.0) 09/10/24 17:31
Sodium 150 mmol/L (135-145) H 09/11/24 09:47
Potassium 3.7 mmol/L (3.5-5.1) D 09/11/24 09:47
Chloride 118 mmol/L (98-107) H 09/11/24 09:47
Carbon Dioxide 21 mmol/L (22-30) L 09/11/24 09:47
BUN 11 mg/dl (9-20) 09/11/24 09:47
Creatinine 0.6 mg/dL (0.7-1.3) L 09/11/24 09:47
Calcium 8.8 mg/dl (8.4-10.2) 09/11/24 09:47
Total Bilirubin 0.6 mg/dl (0.2-1.3) 09/11/24 04:37
AST 32 U/L (17-59) 09/11/24 04:37
ALT 19 U/L (0-50) 09/11/24 04:37
Alkaline Phosphatase 47 U/L (38-126) 09/11/24 04:37
Diagnostic Image Results:
Prior GI Procedures:
EGD: n/a
Colonoscopy: n/a
Assessment / Plan
-
Impression: This is a 29 yo M patient with PMH of substance abuse and anxiety/depression/bipolar who presented to the ED for opioid withdrawal concerns from [facility]. He has been intubated for respiratory distress in ICU.
Differentials: Sixto Tabor Tear, Trauma due to Intubation
Assessment/Plan:
#Coffee-ground Emesis
- Hb 11.8, decreased from yesterday Hb 15.2
- Monitor Hb and transfuse if <7
- BUN wnl at 11
- No further episodes of coffee-ground emesis noted
- Likely trauma related emesis due to frequent vomiting (?sixto tabor tear) vs intubation
- Continue IV PPI BID
- No recommendation for EGD at this time. May consider if clinical pictures changes for further evaluation
-
-
Thank you for consultation and allowing me to participate in the patient's care. Please call the extension division director GI physician during the after hours with any questions or concerns.
--- NOTE | 2024-09-11 11:36 | CM ---
CM following re: discharge planning.
Discussed in rounds, reviewed pt's chart, met with pt and two guards at bedside.
Pt is a 29 year old male, admitted with primary dx of Opioid Withdrawal. per Rounds review, pt intubated yesterday, remains intubated, continue supportive care.
Per guards, there is a possibility that pt might be released from [facility] custody and they awaiting for a Court decision.
If pt will not released from [facility] custody, than pt will return back to [facility]. If pt releases from [facility] than CM will obtain more information from the pt when appropriate.
D/C plan: uncertain at this time.
CM will follow with discharge plan updates as hospitalization progresses
[2024-09-11] MEDS: VANCOCIN 530 MG IV (11:56)
--- NOTE | 2024-09-11 13:00 | PTCARENOTE ---
No major changes in assessment. Weaning sedation per protocol. ST on tele. Rate in the 120-130's. Vent settings unchanged. Sputum culture sent. Lung sounds diminished throughout. +BS. Patient initiated on scheduled Zofran d/t frequent emesis. NGT
remains to LIS. Clamped for meds. Moreno draining yellow urine. Fent/Prop/Dex/Cardene/D5W infusing through left double lumen picc. US of LUE pending.
--- NOTE | 2024-09-11 13:10 | PTCARENOTE ---
No major changes in assessment. Weaning sedation per protocol. ST on tele. Rate in the 120-130's. Vent settings unchanged. Sputum culture sent. Lung sounds diminished throughout. +BS. Patient initiated on scheduled Zofran d/t frequent emesis. NGT
remains to LIS. Clamped for meds. Moreno draining yellow urine. Fent/Prop/Dex/Cardene/D5NS infusing through left double lumen picc. US of LUE pending.
[2024-09-11 14:08] LABS: Hematocrit 34.8 % (39.0-52.0); Hemoglobin 11.8 g/dL (13.0-18.0)
[2024-09-11 14:17] LABS: Blood Urea Nitrogen 11 mg/dl (9-20); Calcium 8.3 mg/dl (8.4-10.2); Carbon Dioxide 23 mmol/L (22-30); Chloride 118 mmol/L (98-107); Estimated Creatinine Clearance > 125 ml/min; Glucose 120 mg/dl (70-99); Potassium 3.4 mmol/L (3.5-5.1); Sodium 149 mmol/L (135-145); eGFR > 60.00
--- NOTE | 2024-09-11 14:45 | PTCARENOTE ---
US of LUE and echo completed.
[2024-09-11] MEDS: KCL ELIXIR 40 MEQ TUBE (15:00)
[2024-09-11] MEDS: ZANAFLEX 2 MG TUBE ×3 (15:00→23:11)
[2024-09-11 15:29] LABS: Hepatitis B Surface Antigen Negative (Negative)
[2024-09-11 15:47] LABS: Hepatitis C Antibody Reactive (Negative)
[2024-09-11] MEDS: SUBLIMAZE 100 MCG IV (16:08)
--- NOTE | 2024-09-11 17:08 | PTCARENOTE ---
Around 1600, guards alerted staff of patient's sudden agitation. Patient restless and thrashing in bed. Sedation adjusted accordingly. Vitals stable. Repositioned for comfort. No other changes.
[2024-09-11] MEDS: CATAPRES 0.2 MG TUBE ×2 (18:08→23:11)
[2024-09-11] MEDS: VANCOCIN 200 IV (21:24)
[2024-09-12] VITALS (49 sets, daily range): BP systolic 89–137; BP diastolic 53–96; BMI 27.6
[2024-09-12] MEDS: DIPRIVAN 100 IV ×4 (00:20→19:34)
[2024-09-12] MEDS: VERSED 1 MG IV ×2 (00:58→18:57)
--- NOTE | 2024-09-12 01:11 | PTCARENOTE ---
Patient with minimal UOP. Notified MULTI OPERATION FORMING MACHINE SETTER, discussed how barnett was exchanged yesterday and flushed on dayshift with some improvement but now putting out less urine again. Order for one time IV lasix ordered. Will continue to monitor.
[2024-09-12] MEDS: PRECEDEX 100 IV ×5 (01:18→23:05)
[2024-09-12] MEDS: LASIX 40 MG IV (01:21)
--- NOTE | 2024-09-12 03:00 | PTCARENOTE ---
Received pt at this hour,stable,afebrile,ventilatory mechanics maintained,O2 sats 99%.SR 70s,no ectopy.IV sedation maintained,pt still requires restraints,pt will pull at wrists when care is given.Q2Hour turning ongoing,physical assessment
documented.2 [facility] guards at bedside.Close observation ongoing.
[2024-09-12] MEDS: SUBLIMAZE 100 IV ×3 (03:09→18:19)
[2024-09-12] MEDS: MAXIPIME 1000 MG IV (03:22)
[2024-09-12] MEDS: STERILE WATER FOR INJECTION 10 ML IV ×2 (03:23→12:22)
[2024-09-12 04:58] LABS: % Basophils 0.4 % (0-2); % Eosinophils 0.4 % (0-6); % Immature Granulocytes 0.5 % (0-0.5); % Lymphocytes 21.9 % (20.5-51.1); % Monocytes 9.2 % (1.7-9.3); % Neutrophils 67.6 % (42.2-75.2); Absolute Basophils 0.1 10^3/uL (0-0.2); Absolute Eosinophils 0.1 10^3/uL (0-0.7); Absolute Immature Granulocytes 0.1 10^3/uL (0-0.05); Absolute Lymphocytes 2.9 10^3/uL (1.2-3.4); Absolute Monocytes 1.2 10^3/uL (0.1-0.6); Absolute Neutrophils 8.9 10^3/uL (1.4-6.5); Hematocrit 34.4 % (39.0-52.0); Hemoglobin 11.7 g/dL (13.0-18.0); Mean Corpuscular Hgb 28.5 pg (27.0-31.0); Mean Corpuscular Volume 83.7 fL (80.0-94.0); Mean Platelet Volume 10.5 fL (7.4-10.4); Nucleated Red Blood Cells % 0 % (-); Platelet Count 175 10^3/uL (130-400); Red Blood Cell Count 4.11 10^6/uL (4.70-6.10); Red Cell Dist. Width 13.4 % (11.5-14.5); White Blood Cell Count 13.1 10^3/uL (4.8-10.8)
[2024-09-12 05:15] LABS: ALT (SGPT) 22 U/L (0-50); AST (SGOT) 51 U/L (17-59); Albumin 3.6 g/dl (3.5-5.0); Alkaline Phosphatase 59 U/L (38-126); Blood Urea Nitrogen 11 mg/dl (9-20); Calcium 8.5 mg/dl (8.4-10.2); Carbon Dioxide 27 mmol/L (22-30); Chloride 111 mmol/L (98-107); Estimated Creatinine Clearance > 125 ml/min; Glucose 116 mg/dl (70-99); Potassium 3.4 mmol/L (3.5-5.1); Sodium 146 mmol/L (135-145); Total Bilirubin 0.9 mg/dl (0.2-1.3); Total Protein 6.8 g/dl (6.3-8.2); eGFR > 60.00
[2024-09-12] MEDS: CATAPRES 0.2 MG TUBE ×2 (05:21→11:03)
[2024-09-12] MEDS: VANCOCIN 200 IV ×3 (05:22→21:49)
[2024-09-12] MEDS: ZOFRAN 4 MG IV (05:23)
[2024-09-12] MEDS: ZANAFLEX 2 MG TUBE ×4 (05:23→23:17)
[2024-09-12 05:30] LABS: B.E. 3.7 mmol/L; HCO3 26.1 mmol/L (21-28); PCO2 32 mmHg (35-48); PO2 189 mmHg (83-108); pH 7.52 (7.35-7.45)
[2024-09-12 05:35] LABS: O2 Saturation % 99.7 % (94-98); O2 Therapy %Oxygen/Room Air ven
[2024-09-12 07:18] LABS: Magnesium 2.2 mg/dl (1.6-2.3)
[2024-09-12] MEDS: KCL ELIXIR 40 MEQ TUBE (07:41)
[2024-09-12] MEDS: NSS (PRESERVATIVE FREE) 10 ML IV ×2 (07:42→19:23)
[2024-09-12] MEDS: PROTONIX IV 40 MG IV ×2 (07:42→19:23)
[2024-09-12] MEDS: MIRALAX 17 GRAMS TUBE (07:42)
--- NOTE | 2024-09-12 08:27 | W.PN.HOSP.TC ---
Addendum entered and electronically signed by Sarmad Mcdaniels MD 09/13/24 14:12:
Agree with resident as below
Original Note:
Today's Communication/Plan
-
Cont to wean fent, prop, precedex as able
SBT per aoc director combat plans officer
Cont vanc, dc cefepime and narrow to ceftriaxone
Assessment / Plan
Assessment / Plan
21-year-old male with past medical history of substance use disorder, anxiety, depression, bipolar disorder presented to ED with opioid withdrawal symptoms. He is despite fentanyl and benzos. He has been given Klonopin, Zofran antibiotics and
presented. He was initially admitted to IMU for management, however transferred to ICU for acute respiratory distress requiring intubation on 09/10/2024.
#Acute respiratory distress
-Intubated on 09/10
-Sedation with fentanyl, propofol and Precedex which will also aid with withdrawal symptoms
-Monitor for BP drops on propofol
-SBT per aoc director combat plans officer
-Daily chest x-rays and ABG
-GI prophylaxis
# Opioid withdrawal
-UDS revealed opioids, buprenorphine, fentanyl, methamphetamines, benzodiazepines, cocaine
-No track millan noted on PE
-Currently sedated with fentanyl and propofol which will aid with withdrawal symptoms
-Received 16 mg Subutex, continue per COWS protocol
-Clonidine patch
-Nicardipine ggt weaned off 09/11
-Fluids D5
-tc 2D echo 65-70% LVEF with no vegetations
-As needed fentanyl, midazolam, tizanidine
#Ground coffee emesis
# Acute blood loss anemia
-Ground coffee emesis noted
-Hemoglobin dropped from 15.2 to 11.8, now stable
-GI signed off as hemoglobin stable and no indication for urgent endoscopy at this time
-Continue PPI BID
-Transfuse for hemoglobin less than 7
#Sepsis
#Leukocytosis, tachycardia, febrile
-WBC 21.2 -> 13.1
-Unclear if reactionary or underlying pathogen
-Repeat chest x-ray
-Sputum cultures reveal staph aureus, nasal swab MRSA
-Continue vancomycin day 3, 2 days cefepime -> discontinue and narrow to ceftriaxone
-Blood cultures prelim (-)
-Tylenol for fevers
-Continue to monitor WBC and fever
#Uncontrolled HTN
-Likely secondary to withdrawal
-Weaned off nicardipine ggt
#Hypokalemia
-Replete
#Hyperkalemia
-resolved
#Hypernatremia
-resolved
#Prolonged QTc
-QTc on admission 560, 09/11 463
-Avoid QTc prolonging medications
-Monitor
DVT Lovenox
Full code
Anticipated Discharge: > 48 hours
Subjective/Interval History
-
Date of Service: September 12, 2024
Objective Data
-
Labs:
Laboratory Results
09/12/24 09/12/24 09/12/24
04:31 04:32 05:16
WBC 13.1 H
Hgb 11.7 L
Hct 34.4 L
Plt Count 175 D
HCO3 26.1
Sodium 146 H
Potassium 3.4 L
Chloride 111 H
Carbon Dioxide 27
BUN 11
Creatinine 0.6 L
Glucose 116 H
Calcium 8.5
Total Bilirubin 0.9
AST 51
ALT 22
Alkaline Phosphatase 59
Vital Signs:
Vital Signs
Temp Pulse Resp BP Pulse Ox
97.6 F 65 22 137/90 99
09/12/24 07:25 09/12/24 07:00 09/12/24 07:00 09/12/24 07:00 09/12/24 08:01
I&O
09/11/24 09/12/24 09/13/24
06:59 06:59 06:59
Intake Total 3209.7 / 3416.7 4413.9 / 4537.6 247.4 / 247.4
Output Total 795 / 812 3200 / 3300 170 / 170
Balance 2414.7 / 2604.7 1213.9 / 1237.6 77.4 / 77.4
Review of Systems
-
Unable to obtain full review of systems at this time due to: Patient Intubation
Physical Exam
-
General: Intubated
Respiratory: Clear to Auscultation
Cardiac: Regular Rhythm and S1/S2
GI: Soft, Nondistended and Normal Bowel Sounds
Musculoskeletal: Edema, Right Upper Extrem, Edema, Left Upper Extrem, Edema, Right Lower Extrem and Edema, Left Lower Extrem
Skin: Warm and Dry
Neuro: AO x 3
Psych: Calm
--- NOTE | 2024-09-12 09:41 | W.PN.INTV ---
Today's Communication / Plan
Recommendations
Start patient on Klonopin 0.5 mg 3 times daily and oxycodone 10 mg every 6 hours
Assessment
-
29-year-old male with past medical history of substance use disorder, anxiety, depression and bipolar disorder being managed in the ICU for opioid withdrawal.
Past 24 hours:
� Admitted to ICU
� Intubated on 09/10.
� White blood cell count 13.1, hemoglobin 11.7, platelets 175.
� 146 sodium, 3.4 potassium, 27 bicarb, 11 BUN, 0.6 creatinine. Blood glucose 121
� Toxicology positive for cocaine, benzodiazepines, methamphetamines, fentanyl, buprenorphine and opioids. Alcohol not detected
� EKG shows sinus tachycardia
- Current drips: Fentanyl 175 mL/h, 0.8 Precedex, IV fluids 75 mL/h and propofol
- echo normal. EF 65-70%
# Opioid and possible benzo withdrawal
# Substance use disorder
# Tachycardia
# Leukocytosis
# Elevated blood sugar
# Emesis- dark brown
# Hyponatremia/ Hypernatremia
# Hyperkalemia
# Prolonged QTc on EKG
-Patient intubated at this time, continue vent settings
-Continue Subutex as per opiate withdrawal protocol
-Continue as needed Ativan and Tigan/ Reglan
-Transition antibiotics to ceftriaxone
- continue restraints for agitation
�Chest x-ray pending
-UTox positive for cocaine, benzodiazepines, methamphetamines, fentanyl, buprenorphine and opioids. Alcohol not detected
-Avoid medications that can further prolong QT
-Elevated white blood count is likely reactive; no if patient well fevers recommend getting blood culture
-Continue with IV fluids for now; patient likely volume depleted due to vomiting. Recheck labs later today
� Single dose of furosemide given a 1 AM
- Replete electrolytes as needed. 40 mg potassium chloride given at this morning
- GI recommended continuing PPI
� Start patient on Klonopin 0.5 mg 3 times daily and oxycodone 10 mg every 6 hours
� Sputum culture pending
DVT prophylaxis: scds
GI prophylaxis: Protonix IV 40 mg twice daily
Subjective Dataa
Subjective Data
Date of Service:
Date of Service: September 12, 2024
No acute events overnight. Patient intubated and stable. Patient is no longer vomiting.
Blood pressure 137/90, pulse 65, respirations 22, afebrile, saturating 99%
Chief Complaint: Sign Artist Follow Up
Review of Systems
General: Unobtainable - Sedation
Objective Data
Data Reviewed
Vital Signs / I&O / Oxygen:
Vital Signs
Temp Pulse Resp BP Pulse Ox
97.6 F 65 22 137/90 99
09/12/24 07:25 09/12/24 07:00 09/12/24 07:00 09/12/24 07:00 09/12/24 08:01
Intake and Output
09/11/24 09/12/24 09/13/24
06:59 06:59 06:59
Intake Total 3209.7 / 3416.7 4413.9 / 4537.6 371.1 / 371.1
Output Total 795 / 812 3200 / 3300 230 / 230
Balance 2414.7 / 2604.7 1213.9 / 1237.6 141.1 / 141.1
SaO2 [A/C] 98
SaO2 99
Physical Exam
General: Comfortable and Other (intubated)
HEENT: Normocephalic and Anicteric
Cardiovascular: S1-S2 and Regular Rhythm
Respiratory: Clear
GI: Soft and Non Distended
Skin: Warm and Other (clammy)
Labs/Micro/Reports
Lab Data
09/12/24 04:31
09/12/24 04:32
Laboratory Results
09/12/24
05:16
pH 7.52 H
pCO2 32 L
pO2 189 H
HCO3 26.1
O2 Delivery Level %oxygen/room air eleno
Microbiology
09/11/24 10:45 Endotracheal Respiratory Culture - Preliminary
Staphylococcus aureus
Danika albicans
09/11/24 10:45 Endotracheal Gram Stain - Preliminary
09/10/24 17:31 Blood/Venous Blood Culture - Preliminary
No Growth in 24 hours- Final report to follow
09/10/24 16:38 Blood/Venous Blood Culture - Preliminary
No Growth in 24 hours- Final report to follow
09/11/24 13:56 Nose Nasal Screen MRSA (PCR) - Final
Staph aureus MRSA
09/10/24 16:40 Nasal Swab Influenza Types A & B (ROGER) - Final
Negative for Influenza A & B, NAAT
Negative results must be combined with clinical observations
and patient history.
Nucleic Acid Amplification test (NAAT)performed on the
[employer] platform.
--- NOTE | 2024-09-12 09:43 | PHA.VAN.FU ---
Vancomycin Assessment / Plan
- Assessment
Renal Function: Stable
WBC's are: Trending Down
Concomitant Antimicrobials: cefepime
- Dosing Plan
Continue: Vanc 1000mg Q8H
- Monitoring Plan
No level(s) ordered at this time: consider levels in next few days
- Follow Up
Pharmacy will continue to follow.
Vancomycin Follow UP
- -
Patient Age: 29
Patient Sex: Male
Vancomycin Day #: 2
Indication: Bacteremia
Requesting Provider: Ricky Pina
Pertinent Antimicrobial Allergies:
NKDA
Height / Weight:
Height 5 ft 8 in
Actual Weight 82.4 kg
Pertinent Past Medical History: OLYA
- Vital Signs / Lab Results
Temp Pulse Resp BP Pulse Ox
97.6 F 65 22 137/90 99
09/12/24 07:25 09/12/24 07:00 09/12/24 07:00 09/12/24 07:00 09/12/24 08:01
Lab Results - Hematology
09/10/24 09/11/24 09/12/24
11:06 04:37 04:31
WBC 21.7 H 21.2 H 13.1 H
Lab Results - Chemistry
09/10/24 09/11/24 09/11/24
11:06 04:37 09:47
BUN 13 11 11
Creatinine 0.7 0.5 L 0.6 L
Estimated Creat Clear > 125 > 125 > 125
Albumin 4.7 3.3 L
09/11/24 09/12/24
13:56 04:32
BUN 11 11
Creatinine 0.6 L 0.6 L
Estimated Creat Clear > 125 > 125
Albumin 3.6
Microbiology Results
09/11/24 10:45 Respiratory Culture - Preliminary
Endotracheal Staphylococcus aureus
Danika albicans
Gram Stain - Preliminary
09/10/24 17:31 Blood Culture - Preliminary
Blood/Venous No Growth in 24 hours- Final report to follow
09/10/24 16:38 Blood Culture - Preliminary
Blood/Venous No Growth in 24 hours- Final report to follow
09/11/24 13:56 Nasal Screen MRSA (PCR) - Final
Nose Staph aureus MRSA
09/10/24 16:40 Influenza Types A & B (ROGER) - Final
Nasal Swab Negative for Influenza A & B, NAAT
Negative results must be combined with clinical observations
and patient history.
Nucleic Acid Amplification test (NAAT)performed on the
[email or web address] platform.
--- NOTE | 2024-09-12 10:44 | PTCARENOTE ---
ROUNDS NOTE
-Vent adjusted due to alkalosis.
-AC: /
-Scheduled oxy/Clon added for withdrawl in efforts to wean off IV medications/sedations.
-No SBT/SAT.
-Cardene D/C.
-Will attempt to wean IV sedation after PO given.
-TF started per orders.
[2024-09-12] MEDS: D5W 1000 IV (10:56)
[2024-09-12] MEDS: ROXICODONE ORAL SOLUTION 10 MG TUBE ×3 (11:03→23:17)
[2024-09-12] MEDS: STERILE WATER FOR INJECTION IV (11:08)
[2024-09-12] MEDS: MAXIPIME IV (11:09)
[2024-09-12] MEDS: ROCEPHIN 1000 MG IV (12:22)
--- NOTE | 2024-09-12 12:59 | PTCARENOTE ---
Sedation weaned, see flow sheets.
Pt. tolerating vent settings.
TF started.
--- NOTE | 2024-09-12 14:27 | PTCARENOTE ---
Diprivan off bridged to Dex, RASS -1.
Fentanyl titrated down. See flowsheets.
No further change in assessment.
[2024-09-12] MEDS: SUBLIMAZE 100 MCG IV ×3 (15:14→23:48)
[2024-09-12] MEDS: KLONOPIN 0.5 MG TUBE ×2 (15:14→21:49)
[2024-09-12 15:57] LABS: Blood Urea Nitrogen 12 mg/dl (9-20); Calcium 8.6 mg/dl (8.4-10.2); Carbon Dioxide 27 mmol/L (22-30); Chloride 110 mmol/L (98-107); Estimated Creatinine Clearance > 125 ml/min; Glucose 117 mg/dl (70-99); Potassium 4.2 mmol/L (3.5-5.1); Sodium 142 mmol/L (135-145); eGFR > 60.00
--- NOTE | 2024-09-12 18:12 | PTCARENOTE ---
TF now at goal.
[2024-09-12] MEDS: CATAPRES TUBE ×2 (18:30→23:06)
[2024-09-12] MEDS: VERSED 5 MG IV (19:36)
--- NOTE | 2024-09-12 22:23 | PTCARENOTE ---
On assessment pt intubated and sedated, at change of shift pt started to get increasingly agitated, PRNs given see MAR, then pt began thrashing around in bed and sitting straight up, SHIPPING & RECEIVING LEAD at bedside and PRNs ordered and given per order.
pt SR on the monitor, ETT #8 25 at the lip, vent settings 18/400/30/5, large amount of oral secretions noted, barnett in place, L upper arm PICC, FEN, DEX, and PROP gtt infusing per orders
[2024-09-12] MEDS: VERSED 2 MG IV (23:57)
[2024-09-13] VITALS (50 sets, daily range): BP systolic 86–116; BP diastolic 52–77; BMI 29.0
--- NOTE | 2024-09-13 00:40 | PTCARENOTE ---
pt has another episode of agitation, PRNs given and sedation increased per MD orders
[2024-09-13] MEDS: SUBLIMAZE 100 IV ×4 (00:46→20:03)
[2024-09-13] MEDS: DIPRIVAN 100 IV ×4 (02:22→22:48)
[2024-09-13] MEDS: PRECEDEX 100 IV ×7 (02:23→22:48)
[2024-09-13] MEDS: VERSED 2 MG IV ×5 (02:36→19:44)
[2024-09-13 03:07] LABS: Hematocrit 33.5 % (39.0-52.0); Hemoglobin 11.4 g/dL (13.0-18.0); Mean Corpuscular Hgb 28.9 pg (27.0-31.0); Mean Corpuscular Volume 84.8 fL (80.0-94.0); Platelet Count 151 10^3/uL (130-400); Red Blood Cell Count 3.95 10^6/uL (4.70-6.10); Red Cell Dist. Width 12.9 % (11.5-14.5); White Blood Cell Count 7.9 10^3/uL (4.8-10.8)
[2024-09-13 03:33] LABS: ALT (SGPT) 20 U/L (0-50); AST (SGOT) 47 U/L (17-59); Albumin 3.2 g/dl (3.5-5.0); Alkaline Phosphatase 51 U/L (38-126); Blood Urea Nitrogen 12 mg/dl (9-20); Calcium 8.3 mg/dl (8.4-10.2); Carbon Dioxide 27 mmol/L (22-30); Chloride 110 mmol/L (98-107); Estimated Creatinine Clearance > 125 ml/min; Glucose 104 mg/dl (70-99); Potassium 3.6 mmol/L (3.5-5.1); Sodium 144 mmol/L (135-145); Total Bilirubin 0.6 mg/dl (0.2-1.3); Total Protein 6.1 g/dl (6.3-8.2); Triglycerides 101 mg/dl (10-149); eGFR > 60.00
--- NOTE | 2024-09-13 04:35 | PTCARENOTE ---
no changes from prior assessment
[2024-09-13] MEDS: ZANAFLEX 2 MG TUBE ×3 (05:09→17:39)
[2024-09-13] MEDS: CATAPRES TUBE (05:09)
[2024-09-13] MEDS: ROXICODONE ORAL SOLUTION 10 MG TUBE ×3 (05:09→17:39)
[2024-09-13] MEDS: VANCOCIN 200 IV ×3 (05:09→21:38)
--- NOTE | 2024-09-13 07:25 | W.PN.HOSP.TC ---
Addendum entered and electronically signed by Sarmad Mcdaniels MD 09/13/24 14:17:
Acute hypoxemic respiratory failure now requiring intubation
Continue sedation with fentanyl propofol and Precedex
RASS -5
Daily SAT SBT RSBI goal <105 when ready for extubation
Tidal volume 6 to 8 kg per ideal body weight
Goal spo2 >90%, titrate PEEP/FiO2 as such
Daily CXR
GI prophylaxis
Leukocytosis
Resolved
Afebrile
Monitor off of atb
2d echo LV ejection fraction is 65-70%, no regional WMA
Opioid withdrawal
UDS positive for polysubstance use
Continue fentanyl
Continue clonidine
Once extubated and off Precedex fentanyl follow COWS protocol/microdosing
Uncontrolled hypertension
Continue Cardene drip
Coffee-ground emesis/normocytic anemia
3 g drop from admission. All 3 cell lineages decreased therefore suspecting hemoconcentration per GI
For now continue to monitor hemoglobin
PPI twice daily IV
Left upper extremity swelling
DVT study - no evidence
Hypernatremia/hyperchloremia
Resolved now on TF, continue FWF, if Na worsening then will need to calculate FWD and adjust flushes as appropriate
Metabolic acidosis likely related to hyperchloremia
Now resolved
Original Note:
Today's Communication/Plan
-
Cont to wean ggts as able
Cont to wean O2
Cont antibiotics
Assessment / Plan
Assessment / Plan
21-year-old male with past medical history of substance use disorder, anxiety, depression, bipolar disorder presented to ED with opioid withdrawal symptoms. He is despite fentanyl and benzos. He has been given Klonopin, Zofran antibiotics and
presented. He was initially admitted to IMU for management, however transferred to ICU for acute respiratory distress requiring intubation on 09/10/2024.
#Acute respiratory distress
-Intubated on 09/10
-Weaned off prop yesterday -> increasing agitation requiring multiple fent pushes -> back on propofol
-Sedation with fentanyl, propofol and Precedex which will also aid with withdrawal symptoms
-Monitor for BP drops on propofol
-SBT per road worker
-Daily chest x-rays and ABG
-GI prophylaxis
-Started tube feeds
# Opioid withdrawal
-UDS revealed opioids, buprenorphine, fentanyl, methamphetamines, benzodiazepines, cocaine
-No track millan noted on PE
-Currently sedated with fentanyl and propofol which will aid with withdrawal symptoms
-Received 16 mg Subutex, continue per COWS protocol
-Started on 10mg Oxy q6
-Clonidine patch
-Nicardipine ggt weaned off 09/11
-Fluids D5
-tc 2D echo 65-70% LVEF with no vegetations
-As needed fentanyl, midazolam, tizanidine
#Ground coffee emesis
# Acute blood loss anemia
-Ground coffee emesis noted
-Hemoglobin dropped from 15.2 to 11.8, now stable
-GI signed off as hemoglobin stable and no indication for urgent endoscopy at this time
-Continue PPI BID
-Transfuse for hemoglobin less than 7
#Sepsis
#Leukocytosis, tachycardia, febrile
-WBC 21.2 -> 13.1 -> 7.9 wnl today
-Unclear if reactionary or underlying pathogen
-Repeat chest x-ray
-Sputum cultures reveal staph aureus, nasal swab MRSA
-Continue vancomycin day 4, 2 days cefepime -> discontinue and narrow to ceftriaxone day 2
-Blood cultures prelim (-)
-Tylenol for fevers
-Continue to monitor WBC and fever
#Ab distension
-Last BM 09/11
-Started tube feeds yesterday
-If no BM today, consider laxative tmrw
#Uncontrolled HTN
-Likely secondary to withdrawal
-Weaned off nicardipine ggt
#Hypokalemia
-Replete
#Hyperkalemia
-resolved
#Hypernatremia
-resolved
#Prolonged QTc
-QTc on admission 560, 09/11 463
-Avoid QTc prolonging medications
-Monitor
DVT Lovenox
Full code
Anticipated Discharge: > 48 hours
Subjective/Interval History
-
Date of Service: September 13, 2024
Objective Data
-
Labs:
Laboratory Results
09/13/24
02:55
WBC 7.9
Hgb 11.4 L
Hct 33.5 L
Plt Count 151
Sodium 144
Potassium 3.6
Chloride 110 H
Carbon Dioxide 27
BUN 12
Creatinine 0.6 L
Glucose 104 H
Calcium 8.3 L
Total Bilirubin 0.6
AST 47
ALT 20
Alkaline Phosphatase 51
Vital Signs:
Vital Signs
Temp Pulse Resp BP Pulse Ox
98.8 F 69 18 92/54 99
09/13/24 05:18 09/13/24 06:00 09/13/24 06:00 09/13/24 06:00 09/13/24 06:00
I&O
09/12/24 09/13/24 09/14/24
06:59 06:59 06:59
Intake Total 4413.9 / 4537.6 2979.5 / 2979.5
Output Total 3200 / 3300 1725 / 1725
Balance 1213.9 / 1237.6 1254.5 / 1254.5
Review of Systems
-
Unable to obtain full review of systems at this time due to: Patient Intubation
Physical Exam
-
General: Intubated
HEENT: Normocephalic
Respiratory: Rhonchi
Cardiac: Regular Rhythm and S1/S2
GI: Soft, Normal Bowel Sounds and Distended
Musculoskeletal: Other (Mild bilateral lower extremity edema )
Skin: Dry and Other (Cold distal extremities )
[2024-09-13] MEDS: MIRALAX 17 GRAMS TUBE (07:32)
[2024-09-13] MEDS: NSS (PRESERVATIVE FREE) 10 ML IV (07:32)
[2024-09-13] MEDS: KLONOPIN 0.5 MG TUBE ×2 (07:32→16:10)
[2024-09-13] MEDS: PROTONIX IV 40 MG IV (07:40)
--- NOTE | 2024-09-13 08:08 | W.PN.INTV ---
Today's Communication / Plan
Recommendations
continue to wean sedation
Assessment
-
29-year-old male with past medical history of substance use disorder, anxiety, depression and bipolar disorder being managed in the ICU for opioid withdrawal.
Past 24 hours:
� Admitted to ICU
� Intubated on 09/10.
� White blood cell count 7.9, hemoglobin 11.4, platelets 151.
� 144 sodium, 3.6 potassium, 27 bicarb, 12 BUN, 0.6 creatinine. Blood glucose 104. Magnesium 2
� Toxicology positive for cocaine, benzodiazepines, methamphetamines, fentanyl, buprenorphine and opioids. Alcohol not detected
� EKG shows sinus tachycardia
- Current drips: Fentanyl 175 mL/h, 1 Precedex, IV fluids 75 mL/h and propofol
- echo normal. EF 65-70%
# Opioid and possible benzo withdrawal
# Substance use disorder
# Tachycardia
# Leukocytosis
# Elevated blood sugar
# Emesis- dark brown
# Hyponatremia/ Hypernatremia
# Hyperkalemia
# Prolonged QTc on EKG
-Patient intubated at this time, continue vent settings
-Continue Subutex as per opiate withdrawal protocol
-Continue as needed Ativan and Tigan/ Reglan
-Transition antibiotics to ceftriaxone
- continue restraints for agitation
�Chest x-ray pending
-UTox positive for cocaine, benzodiazepines, methamphetamines, fentanyl, buprenorphine and opioids. Alcohol not detected
-Avoid medications that can further prolong QT
-Continue with IV fluids for now; patient likely volume depleted due to vomiting.
- Replete electrolytes as needed. 20 mg potassium chloride given at this morning
- GI recommended continuing PPI
� Start patient on Klonopin 0.5 mg 3 times daily and oxycodone 10 mg every 6 hours.
� Patient started on midazolam 2 mg every 2 hours as needed overnight
� Sputum culture pending
DVT prophylaxis: scds
GI prophylaxis: Protonix IV 40 mg twice daily
Subjective Dataa
Subjective Data
Date of Service:
Date of Service: September 13, 2024
No acute events overnight. Patient currently intubated and sedated on Dex, propofol, fentanyl. Vent settings remain 18/400/5/30%.
Chief Complaint: Underwriting Clerk Follow Up
Review of Systems
General: Unobtainable - Sedation
Objective Data
Data Reviewed
Vital Signs / I&O / Oxygen:
Vital Signs
Temp Pulse Resp BP Pulse Ox
98.8 F 69 18 92/54 100
09/13/24 05:18 09/13/24 06:00 09/13/24 06:00 09/13/24 06:00 09/13/24 08:02
Intake and Output
09/12/24 09/13/24 09/14/24
06:59 06:59 06:59
Intake Total 4413.9 / 4537.6 2979.5 / 3034.9 55.4 / 55.4
Output Total 3200 / 3300 1725 / 1725
Balance 1213.9 / 1237.6 1254.5 / 1309.9 55.4 / 55.4
SaO2 [A/C] 100
SaO2 100
Physical Exam
General: Comfortable and Other (intubated)
HEENT: Normocephalic and Anicteric
Cardiovascular: S1-S2 and Regular Rhythm
Respiratory: Clear
GI: Soft and Non Distended
Skin: Warm and Other (clammy)
Labs/Micro/Reports
Lab Data
09/13/24 02:55
09/13/24 02:55
Microbiology
09/11/24 10:45 Endotracheal Respiratory Culture - Preliminary
Staphylococcus aureus
Danika albicans
09/11/24 10:45 Endotracheal Gram Stain - Preliminary
09/10/24 17:31 Blood/Venous Blood Culture - Preliminary
No Growth in 48 hours- Final report to follow
09/10/24 16:38 Blood/Venous Blood Culture - Preliminary
No Growth in 48 hours- Final report to follow
09/11/24 13:56 Nose Nasal Screen MRSA (PCR) - Final
Staph aureus MRSA
09/10/24 16:40 Nasal Swab Influenza Types A & B (ROGER) - Final
Negative for Influenza A & B, NAAT
Negative results must be combined with clinical observations
and patient history.
Nucleic Acid Amplification test (NAAT)performed on the
[employer] platform.
[2024-09-13] MEDS: KCL 160 MEQ IV (08:52)
--- NOTE | 2024-09-13 10:22 | PHA.VAN.FU ---
Vancomycin Assessment / Plan
- Assessment
Renal Function: Stable
WBC's are: WNL
In the past 24 hrs, patient has been: Afebrile
- Dosing Plan
Continue: Vanc 1000mg Q8H
- Monitoring Plan
Peak Level: 09/14 01:00
Trough Level: 09/15 05:30
Monitoring Comments: levels to be drawn after 7th maintenance dose
- Follow Up
Pharmacy will continue to follow.
Vancomycin Follow UP
- -
Patient Age: 29
Patient Sex: Male
Vancomycin Day #: 3
Indication: Bacteremia
Requesting Provider: Ricky Pina
Pertinent Antimicrobial Allergies:
NKDA
Height / Weight:
Height 5 ft 8 in
Actual Weight 86.4 kg
Pertinent Past Medical History: OLYA
- Vital Signs / Lab Results
Temp Pulse Resp BP Pulse Ox
98.8 F 69 18 92/54 100
09/13/24 08:29 09/13/24 06:00 09/13/24 06:00 09/13/24 06:00 09/13/24 08:02
Lab Results - Hematology
09/10/24 09/11/24 09/12/24
11:06 04:37 04:31
WBC 21.7 H 21.2 H 13.1 H
09/13/24
02:55
WBC 7.9
Lab Results - Chemistry
09/10/24 09/11/24 09/11/24
11:06 04:37 09:47
BUN 13 11 11
Creatinine 0.7 0.5 L 0.6 L
Estimated Creat Clear > 125 > 125 > 125
Albumin 4.7 3.3 L
09/11/24 09/12/24 09/12/24
13:56 04:32 15:13
BUN 11 11 12
Creatinine 0.6 L 0.6 L 0.6 L
Estimated Creat Clear > 125 > 125 > 125
Albumin 3.6
09/13/24
02:55
BUN 12
Creatinine 0.6 L
Estimated Creat Clear > 125
Albumin 3.2 L
Microbiology Results
09/11/24 10:45 Respiratory Culture - Final
Endotracheal Staph aureus MRSA
Danika albicans
Gram Stain - Final
09/10/24 17:31 Blood Culture - Preliminary
Blood/Venous No Growth in 48 hours- Final report to follow
09/10/24 16:38 Blood Culture - Preliminary
Blood/Venous No Growth in 48 hours- Final report to follow
09/11/24 13:56 Nasal Screen MRSA (PCR) - Final
Nose Staph aureus MRSA
[2024-09-13] MEDS: KETAMINE 52.6 MG IV (10:47)
[2024-09-13] MEDS: SEROQUEL 50 MG TUBE ×2 (10:56→19:37)
[2024-09-13] MEDS: CATAPRES 0.2 MG TUBE ×3 (10:56→17:39)
--- NOTE | 2024-09-13 12:00 | PTCARENOTE ---
Ketamine administered and Precedex tapering see AUG. vent compliance improved. Seroquel added. No change in physical assessment.
[2024-09-13 14:13] LABS: HCV Quant by NAAT IU/mL 1110000 IU/mL; HCV Quant by NAAT Interp Detected (Not Detected); HCV Quant by NAAT Log IU/mL 6.05 log IU/mL
--- NOTE | 2024-09-13 14:56 | PTCARENOTE ---
in room providing care when pt immediately became combative, Attempting to hit, kick and pull at things. additional PRN obtained.
--- NOTE | 2024-09-13 20:00 | PTCARENOTE ---
rec`d pt intubated and sedated on prop, fent, and Precedex through left PICC. PIVS flushed and patent. SR on monitor. afebrile. +1 pedal edema. restraints. #8 @26 center. POX 98%. vent settings: A/C 18/400/30%/ 5 of peep. thick clear oral
secretions. Jevity TF going at 40 w/ 25 water flush through a rt nare [place]. barnett putting out clear yellow urine. safe environment maintained. two group home guards at bedside.
[2024-09-13] MEDS: SUBLIMAZE 100 MCG IV (20:40)
[2024-09-13] MEDS: HEPARIN 5000 UNITS SC (20:41)
[2024-09-13] MEDS: KLONOPIN TUBE (21:38)
[2024-09-14] VITALS (40 sets, daily range): BP systolic 94–142; BP diastolic 58–87; BMI 29.2
[2024-09-14] MEDS: ZANAFLEX 2 MG TUBE ×4 (00:11→17:43)
[2024-09-14] MEDS: KLONOPIN 1 MG TUBE ×4 (00:11→22:41)
[2024-09-14] MEDS: CATAPRES 0.2 MG TUBE ×3 (00:12→17:43)
[2024-09-14] MEDS: ROXICODONE ORAL SOLUTION 20 MG TUBE ×4 (00:12→18:12)
[2024-09-14] MEDS: SUBLIMAZE 100 IV ×2 (01:49→09:41)
[2024-09-14] MEDS: PRECEDEX 100 IV ×7 (01:54→20:53)
[2024-09-14 02:12] LABS: Vancomycin Peak 18.1 ug/ml (18-26)
[2024-09-14] MEDS: DIPRIVAN 100 IV ×2 (04:06→08:39)
[2024-09-14 04:14] LABS: % Basophils 0.3 % (0-2); % Eosinophils 0.9 % (0-6); % Immature Granulocytes 0.3 % (0-0.5); % Lymphocytes 26.8 % (20.5-51.1); % Monocytes 11.1 % (1.7-9.3); % Neutrophils 60.6 % (42.2-75.2); Absolute Eosinophils 0.1 10^3/uL (0-0.7); Absolute Lymphocytes 1.7 10^3/uL (1.2-3.4); Absolute Monocytes 0.7 10^3/uL (0.1-0.6); Absolute Neutrophils 3.9 10^3/uL (1.4-6.5); Hematocrit 33.5 % (39.0-52.0); Hemoglobin 11.3 g/dL (13.0-18.0); Mean Corp Hgb Conc. 33.7 g/dL (33.0-37.0); Mean Corpuscular Hgb 28.6 pg (27.0-31.0); Mean Corpuscular Volume 84.8 fL (80.0-94.0); Mean Platelet Volume 10.5 fL (7.4-10.4); Nucleated Red Blood Cells % 0 % (-); Platelet Count 144 10^3/uL (130-400); Red Blood Cell Count 3.95 10^6/uL (4.70-6.10); Red Cell Dist. Width 12.9 % (11.5-14.5); White Blood Cell Count 6.4 10^3/uL (4.8-10.8)
[2024-09-14 04:27] LABS: Ammonia 13 umol/L (9-30)
[2024-09-14 04:32] LABS: Vancomycin Trough 11.8 ug/ml (5-20)
[2024-09-14 04:39] LABS: Blood Urea Nitrogen 11 mg/dl (9-20); Calcium 8.3 mg/dl (8.4-10.2); Carbon Dioxide 28 mmol/L (22-30); Chloride 113 mmol/L (98-107); Estimated Creatinine Clearance > 125 ml/min; Glucose 103 mg/dl (70-99); Magnesium 2.2 mg/dl (1.6-2.3); Phosphorus 4.7 mg/dl (2.5-4.5); Potassium 3.7 mmol/L (3.5-5.1); Sodium 145 mmol/L (135-145); eGFR > 60.00
[2024-09-14 04:55] LABS: B.E. 1.5 mmol/L; HCO3 25.9 mmol/L (21-28); O2 Saturation % 99.5 % (94-98); O2 Therapy 30; PCO2 39 mmHg (35-48); PO2 125 mmHg (83-108); pH 7.43 (7.35-7.45)
[2024-09-14] MEDS: VANCOCIN 200 IV (05:20)
[2024-09-14] MEDS: VERSED 2 MG IV ×2 (05:35→06:43)
--- NOTE | 2024-09-14 06:11 | PTCARENOTE ---
pt agitated and combative. prn versed given. vent settings changed to ac18/400/40%/5 of peep due to POX being 90%. POX now 94%.
--- NOTE | 2024-09-14 06:47 | PTCARENOTE ---
pt extremely agitated due to x ray coming to the room. pt fighting and trying to pull the tube out. stat versed given.
[2024-09-14] MEDS: MIRALAX 17 GRAMS TUBE (08:20)
[2024-09-14] MEDS: HEPARIN 5000 UNITS SC (08:21)
[2024-09-14] MEDS: NSS (PRESERVATIVE FREE) 10 ML IV (08:21)
[2024-09-14] MEDS: SEROQUEL 50 MG TUBE ×2 (08:21→20:04)
[2024-09-14] MEDS: PROTONIX IV 40 MG IV (08:21)
--- NOTE | 2024-09-14 08:22 | W.PN.INTV ---
Today's Communication / Plan
Recommendations
Mechanical ventilation -I am hoping that if he remains calm that we can extubate him tomorrow morning
Start ketamine drip
Tried to lower propofol + fentanyl drips off entirely with goal of keeping ketamine + Precedex as we can extubate him on those medications
Continue restraints
Antibiotics
Aspiration precautions
Frequent ETT suctioning as needed
Clonidine, Zanaflex, quetiapine, oxycodone, and Klonopin
Monitor for bowel movements
prn Versed, which he responds well to
Continue ICU level of care for this critical patient
Assessment
-
29-year-old male with past medical history of substance use disorder, anxiety, depression and bipolar disorder being managed in the ICU for opioid withdrawal.
Impression:
#Acute respiratory distress with acute hypoxia now on mechanical ventilation (intubated in ICU on 09/10/2024)
#Acute agitation
#Leukocytosis due to suspected aspiration pneumonia
#Hyperkalemia - likely due to hemolysis (K now normalized)
#Hypernatremia (likely due to dehydration - Na now normalized)
#Polysubstance abuse with withdrawal from opiates and benzos and likely medetomidine and xylazine as adulterants in fentanyl
#Coffee-ground seen in mouth during intubation with concern for UGIB - less likely given normal BUN since admission
#Hx of anxiety
#Bipolar disorder
Plan:
- Continue with mechanical ventilation with daily SAT/SBT if clinically appropriate
- Unfortunately he continues to be very agitated when sedation is lowered and non-directable making it unsafe to extubate
- Start ketamine as he was given a push of this yesterday and it seemed to calm him down greatly and also allow us to drop his propofol and precedex doses for several hours
- Maintain plateau pressure <30
- prn nebulized bronchodilators - not currently bronchospastic
- Titrate PEEP + FiO2 to keep SaO2 >90-94%
- Aspiration precautions
- Considering his use of fentanyl and presumed benzodiazepines, continue fentanyl drip + propofol for sedation to help treat his withdrawal; continue precedex
- Try to wean off propofol fully; continue scheduled oxycodone 20mg q6hr in an effort to wean off fentanyl gtt; continue Klonopin 1mg TID in an effort to wean off propofol
- Continue clonidine + Zanaflex + Tigan
- Antibiotics with cefepime + IV vancomycin were started overnight from 09/10 - 09/11/2024 due to persistent fevers
- Sputum Cx from 09/11/2024 gas grown Staphylococcus aureus + Danika albicans (yeast is likely a contaminant); his nasal screen his MRSA PCR nasal screen was also positive
- Follow up blood Cx (collected 09/10 - NGTD)
- Continue to trend WBC and monitor fever curve - currently on IV vancomycin --> on 09/12 we narrowed Abx to ceftriaxone and DC'd cefepime; now that SCx is final we will DC rocephin
- Continue tube feeds
- Given coffee ground seen during intubation, continue PPI --> change from 40mg IV BID to once daily given little concern for active GI bleed
- Continue tube feeds; GI consulted ---> no EGD recommended at this time as of 09/11/2024 ; monitor H/H and trend BUN (currently WNL)
- Trend H/H and transfuse if needed to keep Hb>7g/dL; keep plt>50k
- D5W DC'd due to correction of hypernatremia
- Continue to monitor [Na] with serial BMP
- continue prn Zyprexa for now (QTc 463ms from 09/11/2024); On 09/13 I added seroquel 50mg BID
- prn ofirmev
- Maintain MAP>65
- Replete electrolytes with K>4, Mg>2
- Maintain euglycemia with goal BG 140-180
- DVT ppx: Resume LMWH
Continue ICU level of care for this critically ill patient.
Critical care statement: A total of 43 minutes of critical care time was provided for this patient today. This includes management of unstable vital signs, evaluation of the patient at bedside, reviewing the patient's pertinent medical records
including radiographs, microbiology, laboratory evaluations, and� discussion with primary team, consultants, pharmacy, nutrition, physical therapy, case management, charge nurse, critical care nursing, and respiratory therapy.
Subjective Dataa
Subjective Data
Date of Service:
Date of Service: September 14, 2024
Chief Complaint: Coding Manager Follow Up
Subjective:
Patient was seen and evaluated this morning. Needed 4 point restraints this morning with Versed as he got agitated during CXR. Currently, HR 64, BP 104/72 and saturating 100%. Currently on propofol at 30mcg/kg/min + fentanyl at 150 mcg/hr +
Precedex at 1.5 mcg/kg/hr. Vent settings currently 18/400/40%/5 with PIP 19 cmH2O, VTE 355mL and breathing at 18 breaths/minute.
Review of Systems
General: Unobtainable - Sedation
Objective Data
Data Reviewed
Vital Signs / I&O / Oxygen:
Vital Signs
Temp Pulse Resp BP Pulse Ox
98.6 F 63 18 110/73 100
09/14/24 08:33 09/14/24 09:00 09/14/24 09:00 09/14/24 09:00 09/14/24 09:00
Intake and Output
09/13/24 09/14/24 09/15/24
06:59 06:59 06:59
Intake Total 2979.5 / 3034.9 2037.1 / 2162.5 591.2 / 591.2
Output Total 1725 / 1725 2145 / 2155 180 / 180
Balance 1254.5 / 1309.9 -107.9 / 7.5 411.2 / 411.2
SaO2 [A/C] 100
SaO2 100
Physical Exam
General: Respiratory Distress (negative), Comfortable and Other (intubated)
HEENT: Normocephalic, Anicteric and Other (ETT in place)
Cardiovascular: S1-S2 and Peripheral Edema (Trace LE edema)
Respiratory: Wheeze (negative), Rhonchi (negative), Non-Labored Respirations, ET Tube (Mechanical breath sounds heard bilaterally) and Other (Coarse breath sounds heard bilaterally)
GI: Soft, Non Distended, Non Tender and Normal Bowel Sounds
Neurology: Tremors (negative) and Other (Sedated)
Skin: Warm, Dry and Other (clammy)
Labs/Micro/Reports
Lab Data
09/14/24 04:01
09/14/24 04:01
Laboratory Results
09/14/24
04:48
pH 7.43
pCO2 39
pO2 125 H
HCO3 25.9
O2 Delivery Level 30
Microbiology
09/10/24 17:31 Blood/Venous Blood Culture - Preliminary
No Growth in 72 hours- Final report to follow
09/10/24 16:38 Blood/Venous Blood Culture - Preliminary
No Growth in 72 hours- Final report to follow
09/11/24 10:45 Endotracheal Respiratory Culture - Final
Staph aureus MRSA
Danika albicans
09/11/24 10:45 Endotracheal Gram Stain - Final
09/11/24 13:56 Nose Nasal Screen MRSA (PCR) - Final
Staph aureus MRSA
--- NOTE | 2024-09-14 08:35 | W.PN.HOSP.TC ---
Addendum entered and electronically signed by Sarmad Mcdaniels MD 09/14/24 16:12:
Acute hypoxemic respiratory failure now requiring intubation
Continue sedation with fentanyl propofol and Precedex
-Adjust sedative/neuropsychic medications
RASS -5
Daily SAT SBT RSBI goal <105 when ready for extubation
Tidal volume 6 to 8 kg per ideal body weight
Goal spo2 >90%, titrate PEEP/FiO2 as such
Daily CXR
GI prophylaxis
Leukocytosis
Resolved
Afebrile
Monitor off of atb
2d echo LV ejection fraction is 65-70%, no regional WMA
Opioid withdrawal
UDS positive for polysubstance use
Continue fentanyl
Continue clonidine
Once extubated and off Precedex fentanyl follow COWS protocol/microdosing
Uncontrolled hypertension
Continue Cardene drip
Coffee-ground emesis/normocytic anemia
3 g drop from admission. All 3 cell lineages decreased therefore suspecting hemoconcentration per GI
For now continue to monitor hemoglobin
PPI twice daily IV
Left upper extremity swelling
DVT study - no evidence
Hypernatremia/hyperchloremia
Resolved now on TF, continue FWF, if Na worsening then will need to calculate FWD and adjust flushes as appropriate
Metabolic acidosis likely related to hyperchloremia
Now resolved
Original Note:
Today's Communication/Plan
-
Adjust ET tube
Increase sedating agents
Cont vancomycin
Active hep C, follow up outpatient
Assessment / Plan
Assessment / Plan
21-year-old male with past medical history of substance use disorder, anxiety, depression, bipolar disorder presented to ED with opioid withdrawal symptoms. He is despite fentanyl and benzos. He has been given Klonopin, Zofran antibiotics and
presented. He was initially admitted to IMU for management, however transferred to ICU for acute respiratory distress requiring intubation on 09/10/2024.
#Acute respiratory distress
-Intubated on 09/10
-Sedation with fentanyl, propofol and Precedex which will also aid with withdrawal symptoms
-Monitor for BP drops on propofol
-SBT per medical service representative
-Daily chest x-rays and ABG
-GI prophylaxis
-Tube feeds
-FiO2 dropped overnight, put back on 40% FiO2, repeat chest x-ray
-ET tube low on x-ray, adjust
# Opioid withdrawal
-UDS revealed opioids, buprenorphine, fentanyl, methamphetamines, benzodiazepines, cocaine
-No track millan noted on PE
-Currently sedated with fentanyl and propofol which will aid with withdrawal symptoms
-Received 16 mg Subutex, continue per COWS protocol
-Oxy got increased to 20q6, clonidine patch increase to 0.2, Seroquel added, tizanidine made a standing order and ketamine push added due to pts agitation when awake.
-Pt mouthed 'f you' when awake and attempts to get free of lines
-Nicardipine ggt weaned off 09/11
-tc 2D echo 65-70% LVEF with no vegetations
-As needed fentanyl, midazolam, tizanidine
#Ground coffee emesis
# Acute blood loss anemia
-Ground coffee emesis noted
-GI signed off as hemoglobin stable and no indication for urgent endoscopy at this time
-Continue PPI BID
-Transfuse for hemoglobin less than 7
#Sepsis
#Leukocytosis, tachycardia, febrile
-Leukocytosis resolved
-Unclear if reactionary or underlying pathogen
-Repeat chest x-ray
-Sputum cultures reveal staph aureus, nasal swab MRSA
-Antibiotics narrowed to vancomycin per sensitivities
-Cefepime x2, ceftriaxone x1, vancomycin x4
-Blood cultures (-)
-Tylenol for fevers
-Continue to monitor WBC and fever
#Ab distension
-Last BM 09/11
-Started tube feeds yesterday
-laxative today
#Uncontrolled HTN
-Likely secondary to withdrawal
-Weaned off nicardipine ggt
#Hepatitis C
-LFTs stable
-Follow up in outpatient
#Hypokalemia
-Replete
#Hyperkalemia
-resolved
#Hypernatremia
-resolved
#Prolonged QTc
-QTc on admission 560, 09/11 463
-Avoid QTc prolonging medications
-Monitor
DVT Lovenox
Full code
Anticipated Discharge: > 48 hours
Subjective/Interval History
-
Date of Service: September 14, 2024
Objective Data
-
Labs:
Laboratory Results
09/14/24 09/14/24
04:01 04:48
WBC 6.4
Hgb 11.3 L
Hct 33.5 L
Plt Count 144
HCO3 25.9
Sodium 145
Potassium 3.7
Chloride 113 H
Carbon Dioxide 28
BUN 11
Creatinine 0.5 L
Glucose 103 H
Calcium 8.3 L
Vital Signs:
Vital Signs
Temp Pulse Resp BP Pulse Ox
98.6 F 65 18 110/72 97
09/14/24 08:33 09/14/24 04:30 09/14/24 04:30 09/14/24 04:30 09/14/24 08:06
I&O
09/13/24 09/14/24 09/15/24
06:59 06:59 06:59
Intake Total 2979.5 / 3034.9 2036. / 2036.
Output Total 1725 / 1725 2145 / 2145
Balance 1254.5 / 1309.9 -107.9 / -107.9
Review of Systems
-
Unable to obtain full review of systems at this time due to: Patient Intubation
Physical Exam
-
General: Intubated
HEENT: Normocephalic
Respiratory: Rhonchi
Cardiac: Regular Rhythm and S1/S2
GI: Soft, Normal Bowel Sounds and Distended
Musculoskeletal: No Edema
Skin: Warm and Dry
Neuro: AO x 3
Psych: Calm
--- NOTE | 2024-09-14 09:07 | PTCARENOTE ---
Addendum entered by Meghann Larson RN 09/14/24 09:17:
prior shift vitals captured. unable to verify accuracy
Original Note:
report received, assessments per work list. patient restless with stimuli, propofol, fentanyl and precedex per work list. monitor nsr, ett to vent, copious oral secretions. ETT suctions for small amounts. [place] placement verified, tube feeds per
order. abdomen round, hyperactive bowel sounds. smear pasty stool. barnett draining dez yellow urine. four poit restraints maintained from prior shift handoff. shackled to bed, left ankle and right wrist. protective foams under restraints and
shackles.
--- NOTE | 2024-09-14 09:24 | PHA.VAN.FU ---
Vancomycin Assessment / Plan
- Assessment
Renal Function: Stable
WBC's are: WNL
In the past 24 hrs, patient has been: Afebrile
- Assessment - Therapeutic Drug Monitoring
Extrapolated Cmax (mcg/mL): 18.1
Peak level was drawn: Appropriately
Extrapolated Cmin (mcg/mL): 11.8
Levels were drawn: At steady state (trough drawn at 4 am)
Calculated AUC (mcg*h/mL): 392
Calculated ke: 0.145
Calculated half life (H): 4.8
Calculated Vd (L): 52.63
Calculated Vanc CL (ml/min): 7.63
- Dosing Plan
Adjust Regimen to: vancomycin 1250 mg q8h
New Regimen Predicts: AUC (545), Peak (34.6), Trough (13.5)
- Monitoring Plan
Next Level Due (Date): consider levels in next few days
- Follow Up
Pharmacy will continue to follow.
Vancomycin Follow UP
- -
Patient Age: 29
Patient Sex: Male
Vancomycin Day #: 4
Indication: Bacteremia
Requesting Provider: Ricky Pina
Pertinent Antimicrobial Allergies:
NKDA
Height / Weight:
Height 5 ft 8 in
Actual Weight 87 kg
Pertinent Past Medical History: OLYA
- Vital Signs / Lab Results
Temp Pulse Resp BP Pulse Ox
98.6 F 63 18 110/73 100
09/14/24 08:33 09/14/24 09:00 09/14/24 09:00 09/14/24 09:00 09/14/24 09:00
Lab Results - Hematology
09/12/24 09/13/24 09/14/24
04:31 02:55 04:01
WBC 13.1 H 7.9 6.4
Lab Results - Chemistry
09/11/24 09/11/24 09/12/24
09:47 13:56 04:32
BUN 11 11 11
Creatinine 0.6 L 0.6 L 0.6 L
Estimated Creat Clear > 125 > 125 > 125
Albumin 3.6
09/12/24 09/13/24 09/14/24
15:13 02:55 04:01
BUN 12 12 11
Creatinine 0.6 L 0.6 L 0.5 L
Estimated Creat Clear > 125 > 125 > 125
Albumin 3.2 L
Microbiology Results
09/10/24 17:31 Blood Culture - Preliminary
Blood/Venous No Growth in 72 hours- Final report to follow
09/10/24 16:38 Blood Culture - Preliminary
Blood/Venous No Growth in 72 hours- Final report to follow
09/11/24 10:45 Respiratory Culture - Final
Endotracheal Staph aureus MRSA
Danika albicans
Gram Stain - Final
Therapeutic Drug Monitoring
Vancomycin Peak 18.1 ug/ml (18-26) 09/14/24 01:04
Vancomycin Trough 11.8 ug/ml (5-20) 09/14/24 04:01
[2024-09-14] MEDS: KETALAR 100 MG IV ×3 (11:00→23:59)
[2024-09-14] MEDS: SENNA SYRUP 8.8 MG PO (11:12)
[2024-09-14] MEDS: CATAPRES TUBE (12:13)
--- NOTE | 2024-09-14 12:30 | CM ---
M following re: discharge planning.
Discussed in rounds, reviewed pt's chart, met with pt and two guards at bedside.
Pt is a 29 year old male, admitted with primary dx of Opioid Withdrawal. Per Rounds review, pt remains intubated, continue supportive care.
Per guards, there is a possibility that pt might be released from [facility] custody and they awaiting for a Court decision.
If pt will not released from [facility] custody, than pt will return back to [facility]. If pt releases from [facility] than CM will obtain more information from the pt when appropriate.
D/C plan: uncertain at this time.
CM will follow with discharge plan updates as hospitalization progresses
[2024-09-14] MEDS: DULCOLAX 10 MG RECTAL (12:42)
--- NOTE | 2024-09-14 12:44 | PTCARENOTE ---
patient reassessed. ketamine infusion initiated, beginning wean of propofol per floor trader. restraints maintained for patient safety. all protective foams changed. red area noted left posterior ankle. see wound documentation
[2024-09-14] MEDS: VANCOCIN 275 MG IV (15:59)
--- NOTE | 2024-09-14 16:23 | PTCARENOTE ---
Addendum entered by Meghann Larson RN 09/14/24 16:47:
patient writing notes, appropriatley communicating. neurodiagnostic technician updated. fentanyl weaned to off
Original Note:
patient reassessed. propofol weaned to off, weaning fentanyl, ketamine per work list. patient alert and follows commands. wrist restraints maintained for patient safety. ett suctions for large amounts treadwell white sputum. had very large soft formed
bowel movement. care provided. patient discharged from [facility].
[2024-09-14] MEDS: LOVENOX 40 MG SC (17:43)
--- NOTE | 2024-09-14 18:23 | PTCARENOTE ---
patient with moderate restlessness, writing notes, 'AMA NOW'. reviewed with patient the risks of leaving. dietary services director at bedside to speak with patient. ketamine increased with relief of anxiety. scheduled medication administered
--- NOTE | 2024-09-14 20:40 | PTCARENOTE ---
Received pt at shift change; Pt restless at times, communicating via writing, head nods and mouthing singular words. AAOx2, disoriented to time and situation. Pleasant with RN and RT, smiling and making jokes. B/l wrist restraints in place with
positive effect, restraint education provided, pt nodded in response. NSR on the monitor. ETT #8 to vent, AC 18/400/40/5, SpO2 100%, suctioned for thick treadwell secretions. Pt compliant with care. +bowel sounds, TF infusing at goal rate. Moreno in place
draining yellow urine. Ketamine and Precedex infusing through L PICC, see flowsheet. RAC INT flushed and patent. Repositioned for comfort, mouth care performed, repositioned for comfort, updated on POC for the evening. Pt resting comfortably in bed,
safe environment maintained, call orozco accessible in L hand.
[2024-09-14] MEDS: SENNA SYRUP 8.8 MG TUBE (22:41)
--- NOTE | 2024-09-14 23:24 | PTCARENOTE ---
Assessment remains unchanged. Scheduled medications given as ordered, see MAR. Repositioned for comfort, suctioned PRN, mouth care performed. Pt remains pleasant and cooperative in care.
[2024-09-15] VITALS (31 sets, daily range): BP systolic 109–156; BP diastolic 64–99; BMI 29.2
[2024-09-15] MEDS: VANCOCIN 275 MG IV ×4 (00:03→23:53)
[2024-09-15] MEDS: ZANAFLEX 2 MG TUBE ×4 (00:05→18:21)
[2024-09-15] MEDS: ROXICODONE ORAL SOLUTION 20 MG TUBE ×3 (00:05→11:47)
[2024-09-15] MEDS: CATAPRES 0.2 MG TUBE ×4 (00:05→18:22)
[2024-09-15] MEDS: PRECEDEX 100 IV ×5 (00:25→21:09)
[2024-09-15] MEDS: TYLENOL ORAL SOLUTION 650 MG TUBE (00:26)
[2024-09-15 04:32] LABS: % Basophils 0.4 % (0-2); % Eosinophils 1.3 % (0-6); % Immature Granulocytes 0.4 % (0-0.5); % Lymphocytes 31.7 % (20.5-51.1); % Neutrophils 55.2 % (42.2-75.2); Absolute Eosinophils 0.1 10^3/uL (0-0.7); Absolute Lymphocytes 1.7 10^3/uL (1.2-3.4); Absolute Monocytes 0.6 10^3/uL (0.1-0.6); Hematocrit 32.6 % (39.0-52.0); Mean Corp Hgb Conc. 33.7 g/dL (33.0-37.0); Mean Corpuscular Hgb 28.9 pg (27.0-31.0); Mean Corpuscular Volume 85.8 fL (80.0-94.0); Mean Platelet Volume 10.8 fL (7.4-10.4); Nucleated Red Blood Cells % 0 % (-); Platelet Count 149 10^3/uL (130-400); Red Cell Dist. Width 12.8 % (11.5-14.5); White Blood Cell Count 5.5 10^3/uL (4.8-10.8)
[2024-09-15 05:00] LABS: ALT (SGPT) 21 U/L (0-50); AST (SGOT) 34 U/L (17-59); Albumin 3.1 g/dl (3.5-5.0); Alkaline Phosphatase 49 U/L (38-126); Blood Urea Nitrogen 14 mg/dl (9-20); Calcium 8.3 mg/dl (8.4-10.2); Carbon Dioxide 27 mmol/L (22-30); Chloride 111 mmol/L (98-107); Estimated Creatinine Clearance > 125 ml/min; Glucose 107 mg/dl (70-99); Potassium 3.9 mmol/L (3.5-5.1); Sodium 146 mmol/L (135-145); Total Bilirubin 0.5 mg/dl (0.2-1.3); eGFR > 60.00
[2024-09-15] MEDS: KETALAR 100 MG IV ×2 (06:35→12:50)
--- NOTE | 2024-09-15 07:46 | W.PN.INTV ---
Today's Communication / Plan
Recommendations
Mechanical ventilation -I am hoping that if he remains calm that we can extubate him today on ketamine and precedex drips
Continue restraints given risk of self extubation
Antibiotics
Aspiration precautions
Frequent ETT suctioning as needed
Clonidine, Zanaflex, quetiapine, oxycodone, and Klonopin
Monitor for bowel movements
prn Versed, which he responds well to
Continue ICU level of care for this critical patient
Assessment
-
29-year-old male with past medical history of substance use disorder, anxiety, depression and bipolar disorder being managed in the ICU for opioid withdrawal.
Impression:
#Acute respiratory distress with acute hypoxia now on mechanical ventilation (intubated in ICU on 09/10/2024)
#Acute agitation
#Leukocytosis due to suspected aspiration pneumonia - resolved since 09/13/2024
#Hyperkalemia - likely due to hemolysis (K now normalized)
#Hypernatremia (likely due to dehydration)
#Polysubstance abuse with withdrawal from opiates and benzos and likely medetomidine and xylazine as adulterants in fentanyl
#Coffee-ground seen in mouth during intubation with concern for UGIB - less likely given normal BUN since admission
#Hx of anxiety
#Bipolar disorder
Plan:
- Continue with mechanical ventilation with daily SAT/SBT if clinically appropriate
- He has been very agitated during awakening trials --> he seemsm to be doing better since ketamine drip was started on 09/14
- Continue wean down precedex as tolerated
- Maintain plateau pressure <30
- prn nebulized bronchodilators - not currently bronchospastic
- Titrate PEEP + FiO2 to keep SaO2 >90-94%
- Aspiration precautions
- Considering his use of fentanyl and presumed benzodiazepines, he was on a fentanyl drip + propofol for sedation to help treat his withdrawal --> he is now off both these drips since 3/28 after ketamine started
- Continue scheduled oxycodone 20mg q6hr; continue Klonopin 1mg TID
- Continue clonidine + Zanaflex + Tigan
- Antibiotics with cefepime + IV vancomycin were started overnight from 09/10 - 09/11/2024 due to persistent fevers
- Sputum Cx from 09/11/2024 gas grown Staphylococcus aureus + Danika albicans (yeast is likely a contaminant); his nasal screen his MRSA PCR nasal screen was also positive
- Follow up blood Cx (collected 09/10 - NGTD)
- Continue to trend WBC and monitor fever curve - currently on IV vancomycin --> on 09/12 we narrowed Abx to ceftriaxone and DC'd cefepime; now that SCx is final we will DC rocephin
- Would give at least 7-10 days total of Abx
- Continue tube feeds
- Given coffee ground seen during intubation, continue PPI --> change from 40mg IV BID to once daily given little concern for active GI bleed
- Continue tube feeds; GI consulted ---> no EGD recommended at this time as of 09/11/2024 ; monitor H/H and trend BUN (currently WNL)
- Trend H/H and transfuse if needed to keep Hb>7g/dL; keep plt>50k
- D5W DC'd due to correction of hypernatremia
- Continue to monitor [Na] with serial BMP
- continue prn Zyprexa for now (QTc 463ms from 09/11/2024); On 09/13 I added seroquel 50mg BID
- prn ofirmev
- Maintain MAP>65
- Replete electrolytes with K>4, Mg>2
- Maintain euglycemia with goal BG 140-180
- DVT ppx: Resumed LMWH on 09/14
Continue ICU level of care for this critically ill patient.
Critical care statement: A total of 38 minutes of critical care time was provided for this patient today. This includes management of unstable vital signs, evaluation of the patient at bedside, reviewing the patient's pertinent medical records
including radiographs, microbiology, laboratory evaluations, and� discussion with primary team, consultants, pharmacy, nutrition, physical therapy, case management, charge nurse, critical care nursing, and respiratory therapy.
Subjective Dataa
Subjective Data
Date of Service:
Date of Service: September 15, 2024
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
Subjective:
Patient seen and evaluated today at bedside. Remains intubated on 18/400/5/40%, with PIP 16 cmH2O, VTe 377 cc and breathing at 18 breaths/min. Was started on ketamine drip yesterday and he seems to be doing well with this. Currently on ketamine
gtt at 0.4 mcg/kg/hr and Precedex at 1 mcg/kg/hr. Heart rate 60, BP 149/64 and saturating 100%. He is easily arousable and following commands, but becomes drowsy very quickly. Febrile yesterday evening to 100.6 �F.
Review of Systems
General: Unobtainable - Sedation (+ Intubated)
Objective Data
Data Reviewed
Vital Signs / I&O / Oxygen:
Vital Signs
Temp Pulse Resp BP Pulse Ox
98.9 F 69 18 145/95 100
09/15/24 07:25 09/15/24 06:00 09/15/24 06:00 09/15/24 06:00 09/15/24 06:00
Intake and Output
09/14/24 09/15/24 09/16/24
06:59 06:59 06:59
Intake Total 2037.1 / 2162.5 4130.7 / 4130.7
Output Total 5 / 2155 4020 / 4020
Balance -107.9 / 7.5 110.7 / 110.7
SaO2 [A/C] 99
SaO2 100
Physical Exam
General: Respiratory Distress (negative), Comfortable, Fever (negative), Chills (negative) and Other (intubated)
HEENT: Normocephalic, Anicteric and Other (ETT in place)
Cardiovascular: S1-S2 and Peripheral Edema (Trace LE edema)
Respiratory: Wheeze (negative), Rhonchi (negative), Non-Labored Respirations and ET Tube (Mechanical breath sounds heard bilaterally)
GI: Soft, Non Distended, Non Tender and Normal Bowel Sounds
Neurology: Tremors (negative) and Other (Sedated)
Skin: Warm and Dry
Labs/Micro/Reports
Lab Data
09/15/24 04:18
09/15/24 04:18
Microbiology
09/10/24 17:31 Blood/Venous Blood Culture - Preliminary
No Growth in 4 days- Final report to follow
09/10/24 16:38 Blood/Venous Blood Culture - Preliminary
No Growth in 4 days- Final report to follow
09/11/24 10:45 Endotracheal Respiratory Culture - Final
Staph aureus MRSA
Danika albicans
09/11/24 10:45 Endotracheal Gram Stain - Final
[2024-09-15] MEDS: MIRALAX 17 GRAMS TUBE (08:07)
[2024-09-15] MEDS: SEROQUEL 50 MG TUBE (08:07)
[2024-09-15] MEDS: KLONOPIN 1 MG TUBE ×3 (08:07→21:08)
[2024-09-15] MEDS: NSS (PRESERVATIVE FREE) 10 ML IV (08:08)
[2024-09-15] MEDS: PROTONIX IV 40 MG IV (08:08)
--- NOTE | 2024-09-15 08:31 | PHA.VAN.FU ---
Vancomycin Assessment / Plan
- Assessment
Renal Function: Stable
WBC's are: Trending Down
In the past 24 hrs, patient has been: Febrile (Tmax = 100.6)
- Dosing Plan
Continue: Vanc 1250mg IV q8H
- Monitoring Plan
Monitoring Comments: Consider levels in the next few days.
- Follow Up
Pharmacy will continue to follow.
Vancomycin Follow UP
- -
Patient Age: 29
Patient Sex: Male
Vancomycin Day #: 5
Indication: Bacteremia
Requesting Provider: Ricky Pina
Pertinent Antimicrobial Allergies:
NKDA
Height / Weight:
Height 5 ft 8 in
Actual Weight 87.1 kg
Pertinent Past Medical History: OLYA
- Vital Signs / Lab Results
Temp Pulse Resp BP Pulse Ox
98.9 F 69 18 145/95 100
09/15/24 07:25 09/15/24 06:00 09/15/24 06:00 09/15/24 06:00 09/15/24 08:14
Lab Results - Hematology
09/13/24 09/14/24 09/15/24
02:55 04:01 04:18
WBC 7.9 6.4 5.5
Lab Results - Chemistry
09/12/24 09/13/24 09/14/24
15:13 02:55 04:01
BUN 12 12 11
Creatinine 0.6 L 0.6 L 0.5 L
Estimated Creat Clear > 125 > 125 > 125
Albumin 3.2 L
09/15/24
04:18
BUN 14
Creatinine 0.6 L
Estimated Creat Clear > 125
Albumin 3.1 L
Microbiology Results
09/10/24 17:31 Blood Culture - Preliminary
Blood/Venous No Growth in 4 days- Final report to follow
09/10/24 16:38 Blood Culture - Preliminary
Blood/Venous No Growth in 4 days- Final report to follow
09/11/24 10:45 Respiratory Culture - Final
Endotracheal Staph aureus MRSA
Danika albicans
Gram Stain - Final
Therapeutic Drug Monitoring
Vancomycin Peak 18.1 ug/ml (18-26) 09/14/24 01:04
Vancomycin Trough 11.8 ug/ml (5-20) 09/14/24 04:01
--- NOTE | 2024-09-15 09:11 | PTCARENOTE ---
Update with respiratory cares team. In and out at bedside this am to progress toward SBT/wean. Follow up with patient mother. Now wagon driver salesperson for patient as per his written request. Follow up with linoleum floor layer at bedside. Continue with weaning
protocols abg as per orders. Sat with patient this am continue updated plan of cares and supportive measures.
--- NOTE | 2024-09-15 09:57 | PTCARENOTE ---
Continue slow progression to wean and sbt. Continue to reinforce and redirect with patient. Follow up with pattern fitter team. Respiratory cares and critical care in and out at bedside.
--- NOTE | 2024-09-15 10:05 | W.PN.HOSP.TC ---
Today's Communication/Plan
-
Assessment / Plan
Assessment / Plan
NAD
Scleral Anicteric
MMM
No JVD
CTABL
RRR, S1/S2
Soft, NT, ND, BS+
Warm, Dry
AAOx3
Calm
Acute hypoxemic respiratory failure now requiring intubation
Continue sedation with fentanyl propofol and Precedex
-Adjust sedative/neuropsychic medications
RASS -5
Daily SAT SBT RSBI goal <105 when ready for extubation
Tidal volume 6 to 8 kg per ideal body weight
Goal spo2 >90%, titrate PEEP/FiO2 as such
Daily CXR
GI prophylaxis
Leukocytosis
Resolved
Afebrile
Monitor off of atb
2d echo LV ejection fraction is 65-70%, no regional WMA
Opioid withdrawal
UDS positive for polysubstance use
Continue fentanyl
Continue clonidine
Once extubated and off Precedex fentanyl follow COWS protocol/microdosing
Hypernatremia
Increase TF FWF
Uncontrolled hypertension
Continue Cardene drip
Coffee-ground emesis/normocytic anemia
3 g drop from admission. All 3 cell lineages decreased therefore suspecting hemoconcentration per GI
For now continue to monitor hemoglobin
PPI twice daily IV
Left upper extremity swelling
DVT study - no evidence
Hypernatremia/hyperchloremia
Resolved now on TF, continue FWF, if Na worsening then will need to calculate FWD and adjust flushes as appropriate
Metabolic acidosis likely related to hyperchloremia
Now resolved
Anticipated Discharge: > 48 hours
Subjective/Interval History
-
Date of Service: September 15, 2024
Seen and examined. No new complaints. No acute overnight events.
Objective Data
-
Labs:
Laboratory Results
09/15/24
04:18
WBC 5.5
Hgb 11.0 L
Hct 32.6 L
Plt Count 149
Sodium 146 H
Potassium 3.9
Chloride 111 H
Carbon Dioxide 27
BUN 14
Creatinine 0.6 L
Glucose 107 H
Calcium 8.3 L
Total Bilirubin 0.5
AST 34
ALT 21
Alkaline Phosphatase 49
Vital Signs:
Vital Signs
Temp Pulse Resp BP Pulse Ox
98.4 F 68 6 145/88 99
09/15/24 09:04 09/15/24 09:30 09/15/24 09:30 09/15/24 09:04 09/15/24 09:30
I&O
09/14/24 09/15/24 09/16/24
06:59 06:59 06:59
Intake Total 2037.1 / 2162.5 4130.7 / 4488.5 502.7 / 502.7
Output Total 2145 / 2155 4020 / 4070 100 / 100
Balance -107.9 / 7.5 110.7 / 418.5 402.7 / 402.7
[2024-09-15 12:48] LABS: B.E. 2.6 mmol/L; HCO3 27.2 mmol/L (21-28); O2 Saturation % 99.8 % (94-98); PCO2 41 mmHg (35-48); PO2 156 mmHg (83-108); pH 7.43 (7.35-7.45)
--- NOTE | 2024-09-15 14:00 | W.PN.UPDATE ---
Update Note
Progress Note Update
Patient is doing well, following commands, able to lift head off the pillow and is calm. Currently on Precedex as well as ketamine drips. Patient extubated to nasal cannula without incident. Will continue to wean down on both Precedex and
ketamine, hopefully to off. Will consult BELTING AND WEBBING INSPECTOR and PT/OT.
--- NOTE | 2024-09-15 14:27 | PTCARENOTE ---
Extubated to 4lpm n/c. Cooperative and interactive with staff. Following commands, FREDY, still witting phone numbers to family members. Call to update mother via phone. Patient called his to update. Family planning to come to hospital. Also made
staff aware patient has multiple overdoses in past. Offer further assitave measures, Be-cares, pastoral cares, and allow him to discuss his plan of recovery. Will continue to follow. Await speech, pt/ot at this assessment.
--- NOTE | 2024-09-15 16:47 | PTCARENOTE ---
Patient remains extubated weaned to room air. Saturation 98% unchanged. Follow aspiration precautions. Test oral cares, sips of thin, straw and several different consistencies. Only complaint is horse in voice tone but clear speech otherwise. No
difficulties swallowing or chewing. Update discuss bedside with newscast director. Diet as ordered. Patient slowly discussing treatment plan and recovery plan post hospitalization. Awaiting to discuss further options. Continue supportive cares and
emotional support.
[2024-09-15] MEDS: LOVENOX 40 MG SC (18:22)
[2024-09-15] MEDS: ROXICODONE 20 MG PO (19:34)
[2024-09-15] MEDS: SEROQUEL 50 MG PO (19:34)
--- NOTE | 2024-09-15 20:00 | PTCARENOTE ---
Received pt. at 1900. Pt. currently in bed. Awake, alert, and oriented. Afebrile. Heart rhythm sinus. Blood pressure normotensive. Currently on room air. Lungs sound clear. Regular diet, good appetite. Moreno catheter in place, draining without
issue. Skin as documented. Discussed plan of care with patient. Vital signs stable at this time.
[2024-09-15] MEDS: SENNA SYRUP 8.8 MG TUBE (21:09)
[2024-09-16] VITALS (13 sets, daily range): BP systolic 105–157; BP diastolic 56–88; PULSE 79; BMI 28.8
--- NOTE | 2024-09-16 | PTCARENOTE ---
Pt. assessment unchanged. Appears to be resting comfortably. Vital signs stable at this time.
[2024-09-16] MEDS: CATAPRES 0.2 MG PO ×3 (00:22→11:30)
[2024-09-16] MEDS: ROXICODONE 20 MG PO ×3 (00:22→11:30)
[2024-09-16] MEDS: ZANAFLEX 2 MG PO ×3 (00:23→11:30)
--- NOTE | 2024-09-16 05:45 | PTCARENOTE ---
Pt. weaned off ketamine gtt and precedex gtt. Behaving appropriately. AM labs drawn. Vital signs stable at this time.
[2024-09-16 05:49] LABS: Hematocrit 33.2 % (39.0-52.0); Hemoglobin 11.3 g/dL (13.0-18.0); Mean Corpuscular Hgb 28.5 pg (27.0-31.0); Mean Corpuscular Volume 83.8 fL (80.0-94.0); Mean Platelet Volume 10.4 fL (7.4-10.4); Platelet Count 177 10^3/uL (130-400); Red Blood Cell Count 3.96 10^6/uL (4.70-6.10); Red Cell Dist. Width 12.4 % (11.5-14.5); White Blood Cell Count 7.4 10^3/uL (4.8-10.8)
[2024-09-16 06:35] LABS: ALT (SGPT) 25 U/L (0-50); AST (SGOT) 38 U/L (17-59); Albumin 3.2 g/dl (3.5-5.0); Alkaline Phosphatase 51 U/L (38-126); Blood Urea Nitrogen 13 mg/dl (9-20); Calcium 8.9 mg/dl (8.4-10.2); Carbon Dioxide 27 mmol/L (22-30); Chloride 113 mmol/L (98-107); Estimated Creatinine Clearance > 125 ml/min; Glucose 93 mg/dl (70-99); Magnesium 2.3 mg/dl (1.6-2.3); Sodium 147 mmol/L (135-145); Total Bilirubin 0.5 mg/dl (0.2-1.3); Total Protein 6.4 g/dl (6.3-8.2); eGFR > 60.00
[2024-09-16] MEDS: NSS (PRESERVATIVE FREE) 10 ML IV (07:40)
[2024-09-16] MEDS: KLONOPIN 1 MG TUBE (07:40)
[2024-09-16] MEDS: MIRALAX 17 GRAMS TUBE (07:40)
[2024-09-16] MEDS: SEROQUEL 50 MG PO (07:40)
[2024-09-16] MEDS: PROTONIX IV 40 MG IV (07:41)
[2024-09-16] MEDS: VANCOCIN 275 MG IV ×2 (07:56→15:20)
--- NOTE | 2024-09-16 08:25 | W.PN.INTV ---
Today's Communication / Plan
Recommendations
Extubated yesterday
Recommend to give total of 7 days ABx, can finish with PO meds, i.e. Doxy +/- augmentin
Aspiration precautions
Recommend to start a medication for opioid use disorder - he says he will be getting subutex at a clinic once he is discharged - already has an appt ([facility])
He says he goes to [facility], and they are helping him try to get set up for housing
While inpatient, continue: Clonidine, Zanaflex, quetiapine, oxycodone, and Klonopin
Monitor for bowel movements
Stable for downgrade out of ICU to med-surg. We will sign off. Thank you for allowing us to be involved in the care of this patient. Please call back with any questions or concerns.
Assessment
-
29-year-old male with past medical history of substance use disorder, anxiety, depression and bipolar disorder being managed in the ICU for opioid withdrawal.
Impression:
#Acute respiratory distress with acute hypoxia requiring mechanical ventilation (intubated in ICU on 09/10/2024; extubated 09/15/2024)
#Acute agitation due to toxic�metabolic encephalopathy - now resolved
#Leukocytosis due to aspiration pneumonia (MRSA) - WBC normalized since 09/13/2024
#Hyperkalemia - likely due to hemolysis (K now normalized)
#Hypernatremia (likely due to dehydration)
#Polysubstance abuse with withdrawal from opiates and benzos and medetomidine and xylazine as adulterants in fentanyl IVDA
#Coffee-ground seen in mouth during intubation with concern for UGIB - less likely given normal BUN since admission
#Hx of anxiety
#Bipolar disorder
Plan:
- Patient successfully extubated on 09/15/2024 on Precedex + ketamine drips (ketamine gtt started on 09/14 and he markedly improved after that)
- Both these drips are now off and he is calm, awake and oriented
- He remains on oxycodone, clonidine, Klonopin, Seroquel + Zanaflex --> all these meds helped get him extubated safely
- At this point, he wishes to start/continue with Subutex which he obtains as an outpatient from [facility]; he already has an outpatient appoint with them on Tuesday (09/22/2024)
- prn nebulized bronchodilators - not currently bronchospastic
- Keep SaO2 >90-94%
- Aspiration precautions
- Antibiotics with cefepime + IV vancomycin were started overnight from 09/10 - 09/11/2024 due to persistent fevers
- Sputum Cx from 09/11/2024 gas grown Staphylococcus aureus + Danika albicans (yeast is likely a contaminant); his nasal screen his MRSA PCR nasal screen was also positive
- Follow up blood Cx (collected 09/10 - NGTD)
- Continue to trend WBC and monitor fever curve - currently on IV vancomycin --> on 09/12 we narrowed Abx to ceftriaxone and DC'd cefepime; now that SCx is final we will DC rocephin
- Would give at least 7 days total of Abx - can complete course with doxycycline +/- Augmentin
- PO diet
- Given coffee ground seen during intubation, he was on IV PPI BID --> changed to once daily given little concern for active GI bleed
- Tube feeds now off given he was extubated on 09/15 and on regular diet; ENGINEERING DRAFTER is ordered
- GI consulted ---> no EGD recommended at this time as of 09/11/2024 ; monitor H/H and trend BUN (currently WNL)
- Trend H/H and transfuse if needed to keep Hb>7g/dL; keep plt>50k
- s/p D5W DC'd due to correction of hypernatremia ---> Na now slightly elevated - continue to monitor; may need D5W again if continues to rise; for now encourage water intake
- Continue to monitor [Na] with serial BMP
- On 09/13 I added seroquel 50mg BID - he seems to be doing well with this
- prn ofirmev
- Maintain MAP>65
- Replete electrolytes with K>4, Mg>2
- Maintain euglycemia with goal BG 140-180
- DVT ppx: Resumed LMWH on 09/14
Patient no longer requires ICU level of care. PICC line will be removed. Stable for downgrade to [facility]. No additional recommendations at this time. Professional Driver/Pulmonary service will now sign off. Thank you for allowing us to be involved in
the care of this patient. Please reconsult if there are any additional questions/concerns, or if patient's respiratory status deteriorates.
Total time spent today was 56 minutes for this encounter. Time includes reviewing laboratory test/imaging results, reviewing pertinent medical records, obtaining and reviewing medical history, performing an appropriate exam, ordering medications,
tests and procedures. Time also includes documentation of this encounter, coordinating patient care and communicating with other healthcare professionals. Total time does not include separately billed tests performed on this date of service.
Subjective Dataa
Subjective Data
Date of Service:
Date of Service: September 16, 2024
Chief Complaint: Professional Driver Follow Up
Subjective:
Patient seen and evaluated today at bedside. Patient extubated yesterday on ketamine + Precedex, both of which are now off. He is awake, alert and calm. He says that he wants to get help for his IV drug use. Afebrile overnight. He denies chest
pain, shortness of breath, belly pain, fevers or chills.
Review of Systems
General: Other (Negative unless mentioned above)
Objective Data
Data Reviewed
Vital Signs / I&O / Oxygen:
Vital Signs
Temp Pulse Resp BP Pulse Ox
98.6 F 71 20 115/84 98
09/16/24 07:11 09/16/24 08:40 09/16/24 08:40 09/16/24 08:40 09/16/24 08:40
Intake and Output
09/15/24 09/16/24 09/17/24
06:59 06:59 06:59
Intake Total 4130.7 / 4488.5 2383.4 / 2623.4 730 / 730
Output Total 4020 / 4070 3650 / 3900 500 / 500
Balance 110.7 / 418.5 -1266.6 / -1276.6 230 / 230
SaO2 [CPAP] 100
SaO2 [A/C] 100
SaO2 98
Nasal Cannula flow liters per 4
minute
Physical Exam
General: Respiratory Distress (negative), Comfortable, Fever (negative) and Chills (negative)
HEENT: Normocephalic and Anicteric
Cardiovascular: S1-S2 and Peripheral Edema (negative)
Respiratory: Wheeze (negative), Crackles (negative), Rhonchi (negative) and Non-Labored Respirations
GI: Soft, Non Distended, Non Tender and Normal Bowel Sounds
Neurology: AO x 3 and Tremors (negative)
Skin: Warm, Dry, Cyanosis (negative) and Jaundice (negative)
Labs/Micro/Reports
Lab Data
09/16/24 05:41
09/16/24 05:41
Laboratory Results
09/15/24
12:40
pH 7.43
pCO2 41
pO2 156 H
HCO3 27.2
O2 Delivery Level
Microbiology
09/10/24 17:31 Blood/Venous Blood Culture - Final
No Growth - Final Report
09/10/24 16:38 Blood/Venous Blood Culture - Final
No Growth - Final Report
09/11/24 10:45 Endotracheal Respiratory Culture - Final
Staph aureus MRSA
Danika albicans
09/11/24 10:45 Endotracheal Gram Stain - Final
--- NOTE | 2024-09-16 08:44 | PTCARENOTE ---
Updated assessment, vital signs ongoing and as documented. Follow up teaching and plan of cares. Await rounds for orders to deline and start PT/OT. Eating and drinking tolerating PO. Anxious to go home. Overall remains Awake, alert, cooperative,
pleasant and interactive with staff. Continue hourly rounds frequent patient safety checks. Call orozco demo and in use as needed.
--- NOTE | 2024-09-16 09:26 | PHA.VAN.FU ---
Vancomycin Assessment / Plan
- Assessment
Renal Function: Stable
WBC's are: Trending Up
In the past 24 hrs, patient has been: Afebrile
- Dosing Plan
Continue: Vanc 1250mg IV Q8H
- Monitoring Plan
Level(s) appropriate: Recheck trough at minimum of weekly intervals, Repeat sooner for changes in renal function or clinical status
- Follow Up
Pharmacy will continue to follow.
Vancomycin Follow UP
- -
Patient Age: 29
Patient Sex: Male
Vancomycin Day #: 6
Indication: Bacteremia
Requesting Provider: Ricky Pina
Pertinent Antimicrobial Allergies:
NKDA
Height / Weight:
Height 5 ft 8 in
Actual Weight 85.9 kg
Pertinent Past Medical History: OLYA
- Vital Signs / Lab Results
Temp Pulse Resp BP Pulse Ox
98.6 F 71 20 115/84 98
09/16/24 07:11 09/16/24 08:40 09/16/24 08:40 09/16/24 08:40 09/16/24 08:40
Lab Results - Hematology
09/14/24 09/15/24 09/16/24
04:01 04:18 05:41
WBC 6.4 5.5 7.4
Lab Results - Chemistry
09/14/24 09/15/24 09/16/24
04:01 04:18 05:41
BUN 11 14 13
Creatinine 0.5 L 0.6 L 0.5 L
Estimated Creat Clear > 125 > 125 > 125
Albumin 3.1 L 3.2 L
Microbiology Results
09/10/24 17:31 Blood Culture - Final
Blood/Venous No Growth - Final Report
09/10/24 16:38 Blood Culture - Final
Blood/Venous No Growth - Final Report
Therapeutic Drug Monitoring
Vancomycin Peak 18.1 ug/ml (18-26) 09/14/24 01:04
Vancomycin Trough 11.8 ug/ml (5-20) 09/14/24 04:01
--- NOTE | 2024-09-16 10:03 | W.PN.HOSP.TC ---
Today's Communication/Plan
-
Assessment / Plan
Assessment / Plan
NAD
Scleral Anicteric
MMM
No JVD
CTABL
RRR, S1/S2
Soft, NT, ND, BS+
Warm, Dry
AAOx3
Calm
Acute hypoxemic respiratory failure now requiring intubation
Precedex and ketamine discontinued around 200-300 AM
Extubated on 09/15
Leukocytosis, per ICU, suspect related to aspiration
Though MRSA nasal screen and respiratory culture both positive
Will continue vancomycin IV
2d echo LV ejection fraction is 65-70%, no regional WMA, no beg noted, bcx ngtd
Opioid withdrawal
UDS positive for polysubstance use
Continue oxycodone
Continue clonidine
COWS protocol
Hypernatremia
Encourage p.o. intake
Uncontrolled hypertension
Controlled
Coffee-ground emesis/normocytic anemia
3 g drop from admission. All 3 cell lineages decreased therefore suspecting hemoconcentration per GI
For now continue to monitor hemoglobin
PPI twice daily IV
Left upper extremity swelling
DVT study - no evidence
Metabolic acidosis likely related to hyperchloremia
Now resolved
He is interested in nursing home opiod help, informed him that he would have to stay in the hospital a little longer to speak with SW/CM about BCares. However, is also asking about AMA. I have tried to impress on him the importance of getting help.
Although, at this time he has been off of sedative such as precedex and ketamine since 2-3am, half life of precedex is around 3hours.
He understands that if he leaves AMA in the afternoon or at night without completing antibiotic course this mrsa could turn into bacteremia/endocarditis and even potentially could ensues from others causes. He verbalizes understanding at this
time. He would like to know when the barnett catheter would be coming out. Will plan to remove the picc line as well.
Anticipated Discharge: 24 - 48 hours
Subjective/Interval History
-
Date of Service: September 16, 2024
Seen and examined. No new complaints. No acute overnight events.
Objective Data
-
Labs:
Laboratory Results
09/16/24
05:41
WBC 7.4
Hgb 11.3 L
Hct 33.2 L
Plt Count 177
Sodium 147 H
Potassium 4.0
Chloride 113 H
Carbon Dioxide 27
BUN 13
Creatinine 0.5 L
Glucose 93
Calcium 8.9
Total Bilirubin 0.5
AST 38
ALT 25
Alkaline Phosphatase 51
Vital Signs:
Vital Signs
Temp Pulse Resp BP Pulse Ox
98.6 F 71 20 115/84 98
09/16/24 07:11 09/16/24 08:40 09/16/24 08:40 09/16/24 08:40 09/16/24 08:40
I&O
09/15/24 09/16/24 09/17/24
06:59 06:59 06:59
Intake Total 4130.7 / 4488.5 2383.4 / 2623.4 730 / 730
Output Total 4020 / 4070 3650 / 3900 500 / 500
Balance 110.7 / 418.5 -1266.6 / -1276.6 230 / 230
--- NOTE | 2024-09-16 12:05 | PTCARENOTE ---
PT/OT bedside. In and out of bed to chair. Update with carpet loom fixer team. Update with Hospitalist team. Moreno dc'd and picc line removed. Right ac 20jelco intact patent. Follow up teaching and plan of cares. Self cares at this time assist with set
up. Continue ongoing safety checks, nutritional offers and staff available for support as needed. Call orozco in use.
--- NOTE | 2024-09-16 13:16 | PTCARENOTE ---
Await follow up. Patient requesting to leave at this time. Wants script for antibiotics. Will update ware server and hospitalist. Ambulating ICu without difficulty. Continue follow up teaching, offer supportive cares.
--- NOTE | 2024-09-16 14:13 | W.DCSUMMARY ---
Discharge Summary
Discharge Data
Date of Admission: 09/10/24
Date of Discharge: 09/16/24
-
Pending Results: No
Hospital Course
29 y/o male past medical history of substance abuse, and anxiety/depression/bipolar disorder
Presented from group home for opioid withdrawal that consisted of restlessness nausea vomiting diarrhea despite receiving Subutex. Unfortunately, clinical course subsequently worsened while in the ED and required intubation/mechanical ventilator
support for acute hypoxemic respiratory failure which is suspected to be related to aspiration. Started on IV antibiotics and was eventually liberated from mechanical ventilator. Will need to continue taking Augmentin and doxycycline for
additional 5 more days upon discharge. Will need to follow-up with outpatient Subutex clinic.
MRSA Nasal Cx - MRSA +
Sputum culture MRSA + Danika (Likely Contaminant per ICU)
2d echo
CONCLUSIONS
Technically difficult study
Normal left ventricular size, wall thickness and systolic function. No regional
wall motion abnormalities are seen. LV ejection fraction is 65-70% by visual
assessment.
No significant valvular disease.
No prior study available for comparison.
DVT Study
IMPRESSION: Limited exam. No evidence of DVT. See above
CXR
IMPRESSION:
Endotracheal tube with tip in trachea at least 4 cm above the giorgi. No pneumothorax.
No acute pulmonary process.
CXR
IMPRESSION:
Endotracheal tube tip is 7 mm above the giorgi. Recommend withdrawing by 2 centimeters. Remaining support apparatus in good position
Low lung volumes. Lungs are clear.
Discharge Plan
-
Patient Disposition: Home (Routine Discharge)
Discharge Diagnosis/Procedures: Opioid withdrawal
Pneumonia
Condition: Good
Diet: As tolerated
Activity: As tolerated
Activity Restrictions/Additional Instructions:
Presented from group home for opioid withdrawal that consisted of restlessness nausea vomiting diarrhea despite receiving Subutex. Unfortunately, clinical course subsequently worsened while in the ED and required intubation/mechanical ventilator
support for acute hypoxemic respiratory failure which is suspected to be related to aspiration. Started on IV antibiotics and was eventually liberated from mechanical ventilator. Will need to continue taking Augmentin and doxycycline for
additional 5 more days upon discharge. Will need to follow-up with outpatient Subutex clinic.
Referrals:
[facility] [Family Provider] -
Gunner Chaney MD [Active] -
Ro Braun MD [Active] -
Prescriptions:
New
pantoprazole 40 mg Tablet,Delayed Release (Dr/Ec)
40 mg PO DAILY Qty: 14 0RF
amoxicillin-pot clavulanate [Augmentin] 500-125 mg tablet
1 tab PO BID 5 Days Qty: 10 0RF
doxycycline hyclate 100 mg capsule
100 mg PO BID 5 Days Qty: 10 0RF
Continued
ondansetron HCl 4 mg Tablet
4 mg PO Q6HPRN PRN (Reason: nausea)
loperamide 2 mg Tablet
2 mg PO TIDPRN PRN (Reason: diarrhea)
buprenorphine HCl 8 mg Tablet, Sublingual
24 mg SUBLINGUAL DAILY
clonidine HCl 0.1 mg Tablet
0.1 mg PO DIRECTED
Rx Instructions:
take .1mg tid until 09/13/24 then on 09/15 and 09/16 .1mg bid then .5mg daily until 09/16/24
clonazepam 1 mg Tablet
2 mg PO DIRECTED
Rx Instructions:
take 2mg bid until 08/14/24 then 1.5mg bid until 09/14/24 1mg bid until 09/16/34 0.5mg bid until 09/18/24 then 0.5mg hs until 09/21/24
Discontinued
sulfamethoxazole-trimethoprim [Bactrim DS] 800-160 mg Tablet
1 tab PO BID
Discharge Orders:
Discharge Patient (As Directed); Ordered 09/16/24
Ordered By: Sarmad Mcdaniels
Discharge Date and Time
Print Language: PORTUGUESE
--- NOTE | 2024-09-16 14:46 | PTOTSP ---
ST Acute Care Evaluation
Pt currently presents with clinical signs of oral and pharyngeal swallowing parameters that are WFL. No overt s/s of penetration or aspiration noted at bedside. Pt reports clinical symptoms of GERD and pt exhibits some consistent eructation s/p
ingestion of carbonated beverages - pt recommended to f/u with PCP or GI as an OP for possible GERD work-up.
Recommendations:
- Continue with regular solids, thin liquids, meds as tolerated.
- General aspiration and reflux precautions.
- Consider OP GI work-up for possible GERD.
- FILM PAINTER to sign-off, as no skilled FILM PAINTER services are deemed warranted at this time.
--- NOTE | 2024-09-16 15:05 | PTCARENOTE ---
Continue to work with patient and toward discharge. Reinforce importance of medications, medication compliance, and following up appointments. Reinforce treatment options. Patient stating there is a place in [place] that he will be going
to tomorrow. Manager Bar and hospitalist teams working with patient for discharge. Continue supportive cares and teaching.
[2024-09-16] MEDS: KLONOPIN 1 MG PO (15:47)
--- NOTE | 2024-09-16 16:10 | CM ---
Chart reviewed. Patient is stable for d/c.
Patient will d/c home as he is released from [facility]. Patient has upcoming court date
No CM needs identified
Plan: Home w/ spouse.
--- NOTE | 2024-09-16 16:43 | PTCARENOTE ---
Patient requesting to leave at this time. Discharge instructions reviewed with patient and several times. Updated script, pharmacy for patient. Patient verbalizes he's happy to leave hospital clean. Nutrition provided prior to leaving. Staff
stress importance of follow up cares. Discharged post abx as ordered.
== END 2024-09-16 16:42 | disposition home or self-care (01) | DRG 896 ==
LOC: ICU 14:56
PROVIDERS: Nurse Practitioner Family; Physician Assistant Medical; Student in an Organized Health Care Education/Training Program; ADMITTING PHYSICIAN Hospitalist; ATTENDING PHYSICIAN Hospitalist; CONSULT PHYSICIAN Internal Medicine Critical Care Medicine; CONSULT PHYSICIAN Internal Medicine Gastroenterology; EMERGENCY PHYSICIAN Emergency Medicine
PROC: 5A1945Z Respiratory Ventilation, 24-96 Consecutive Hours (ICD-10-PCS; 2024-09-12)
DX: F11.93 Opioid use, unspecified with withdrawal (principal); A41.9 Sepsis, unspecified organism; J96.01 Acute respiratory failure with hypoxia; J69.0 Pneumonitis due to inhalation of food and vomit; E87.0 Hyperosmolality and hypernatremia; E87.20 Acidosis, unspecified; K92.0 Hematemesis; E87.1 Hypo-osmolality and hyponatremia; Z99.11 Dependence on respirator [ventilator] status; D62 Acute posthemorrhagic anemia; F13.239 Sedative, hypnotic or anxiolytic dependence with withdrawal, unspecified; I10 Essential (primary) hypertension; E87.8 Other disorders of electrolyte and fluid balance, not elsewhere classified; E86.0 Dehydration; F31.9 Bipolar disorder, unspecified; F41.9 Anxiety disorder, unspecified; Z11.52 Encounter for screening for COVID-19; B18.2 Chronic viral hepatitis C; E87.6 Hypokalemia; E87.5 Hyperkalemia
CPT/HCPCS: 36600; 71045; 80048; 80053; 80202; 80306; 80307; 81003; 81015; 82077; 82140; 82248; 82805; 82962; 83735; 84100; 84478; 85014; 85018; 85025; 85027; 85610; 85730; 86803; 87040; 87070; 87147; 87186; 87205; 87340; 87502; 87522; 87641; 87811; 92610; 93005; 93306; 93971; 94002; 94003; 96372; 96374; 96375; 96376; 97162; 97166; 99284; J2358